=== PATIENT | female | born 1960 | race Caucasian/White ===

== ENCOUNTER 2024-07-01 13:59 | Inpatient (IN) ==
--- NOTE | 2024-07-01 14:12 | Emergency Department Note ---
Impression & Plan Stroke-like symptom, Right-sided carotid artery disease ED Provider Note NAME: VAMSI HAZEL AGE: 63 SEX: F : 1960 ARRIVES VIA: Walk-In INFORMANT: Patient, ED PROVIDER(S): Billy Singh DO CHIEF COMPLAINT: Strokelike symptoms HPI: The patient is a 63-year-old female who presented to the emergency department for an evaluation of strokelike symptoms. The patient states approximately 15 to 20 minutes ago she was walking upstairs and doing some cleaning. She had an acute onset of left arm numbness. She also noted that her arm was heavy and she could not lift it. She noticed tingling on both sides of her face. The patient came directly to the emergency department. At this point she states that her arm weakness is improving. She denies having any chest pain or difficulty breathing. She denies having any headache. The patient has no history of stroke but does have a history of hypertension. ROS: See above HPI for pertinent positives & negatives. A total of 10 systems reviewed and were otherwise negative. PAST MEDICAL HISTORY: See Below PAST SURGICAL HISTORY: See Below FAMILY HISTORY: See Below SOCIAL HISTORY: See Below HOME MEDICATIONS: See Below ALLERGIES: See Below VITALS: See Below PHYSICAL EXAMINATION: GENERAL: The patient is awake and alert. She is very anxious appearing. EYES: The conjunctivae are clear. The pupils are round and reactive. EARS, NOSE, MOUTH AND THROAT: The nose is without any evidence of any deformity. NECK: The neck is nontender and supple. RESPIRATORY: Normal respiratory effort is noted there is no evidence of wheezing rhonchi or rales CARDIOVASCULAR: Regular rate and rhythm noted there no murmurs rubs or gallops normal S1 normal S2. GASTROINTESTINAL: The abdomen is soft. Abdomen is nontender. MUSCULOSKELETAL/EXTREMITIES: There is no evidence of gross deformity full range of motion is noted in the hips and shoulders. SKIN: There is no obvious evidence of any rash. There are no petechiae, pallor or cyanosis noted. NEUROLOGIC: Patient is awake alert and oriented x3 strength is symmetric patellar reflexes are 2+ bilaterally. There is no drift in the upper extremities. Patient is able to hold each leg off of the bed for greater than 5 seconds. Clothespin Drier Operator strength was symmetric. MEDICAL DECISION MAKING: The patient is a 63-year-old female who presented to the emergency department for strokelike symptoms. The patient had an acute onset of left upper extremity tingling as well as weakness. This occurred prior to arrival. Upon arrival to the emergency department she was not initially made a stroke alert. She was brought back to a room and then made a stroke alert after my evaluation. The patient was reevaluated multiple times. Symptoms continued to improve while in the emergency department. She was evaluated by the telestroke neurologist. Because of her improving symptoms and because the patient was not agreeable to TNK at this time she was not given TNK. I discussed the patient's condition with her. I discussed her condition with the on-call [facility] group. The patient was treated with Plavix. Triage Nursing notes reviewed. Prior medical records reviewed Vital Signs: reviewed and remarkable for elevated blood pressure. Differential diagnosis: Infection, dehydration, metabolic abnormality, hypo/hyperglycemia, electrolyte disturbance, anemia, hypoxia, cardiac sources, intracerebral event, toxicologic, neurologic, as well as other pathologies. ER treatment provided: See below Diagnostics interpreted by me: ECG: EKG was obtained in the emergency department. My interpretation is normal sinus rhythm at 91 bpm. There was no ectopy. There is no acute ST segment abnormalities noted. This was compared to a tracing from December 05, 2022. No changes were noted. Cardiac Monitoring: An order was placed for continuous cardiac monitoring. The monitor shows a rate of 87 bpm with sinus rhythm. Laboratory studies: As stated above and show below. Imaging studies: See below. Radiographic imaging was reviewed by myself Consultation(s): I discussed this case with Dr Khalil who was financial administration officer for [facility] [place] Telestroke I discussed this case with Na who is on for the [facility]ist group. ED COURSE: Procedures: none Critical Care: I have personally spent greater than 45 minutes of critical care time in the direct management of this patient. This includes bedside care, interpretation of diagnostic studies, and testing, discussion with consultants, patient, and family members, and other required patient management activities. This 45 minutes is in excess of all separately billable procedures. Past Med/Surg History Problem List (Updated 07/01/24 @ 15:31 by Billy Singh DO) Right-sided carotid artery disease (Acute) Stroke-like symptom (Acute) Stroke-like symptoms Medical History HTN (hypertension) Surgical History No pertinent past surgical history Social History Smoking Status: Never smoker Hx Alcohol Use: No Hx Substance Use: No Preferred Language: Spanish Feels Safe at Home: Yes Allergies Allergies Allergy/AdvReac Type Severity Reaction Status Date / Time [id number] Allergy Unknown Uncoded 01/31/03 16:59 Home Meds Previous Rx's Medication Instructions Recorded amlodipine 5 mg tablet 5 mg PO DAILY #30 tabs 12/05/22 Results & Data (ED) Vital Signs Vital Signs - 24 hr 07/01/24 14:02 07/01/24 14:10 07/01/24 14:30 Temperature 36.3 C L 36.7 C Temperature Source Temporal Artery Scan Oral Pulse Rate 102 H Pulse Rate [Apical] 101 H Pulse Rate from SpO2 Sensor Pulse Rhythm [Apical] Regular Pulse Strength [Apical] Normal Respiratory Rate 16 20 Respiratory Effort / Characteristics Non-Labored Spontaneous Non-Labored Spontaneous Respiratory Depth Normal Normal Respiratory Pattern Regular Regular Blood Pressure 148/93 H 156/103 H Blood Pressure [Right Arm] 176/114 H Blood Pressure Mean 111 121 Blood Pressure Mean [Right Arm] 134 Blood Pressure Position [Right Arm] Semi-fowlers Pulse Oximetry 97 95 Oxygen Delivery Method Room Air Room Air Sepsis Recent Fever Within 48 Hours No Sepsis New/Unexplained Change in Mental Status N/A Sepsis Action Taken by Nursing No Action Required 07/01/24 14:30 07/01/24 14:35 07/01/24 14:42 Temperature Temperature Source Pulse Rate 95 H 94 H Pulse Rate [Apical] Pulse Rate from SpO2 Sensor 95 H Pulse Rhythm [Apical] Pulse Strength [Apical] Respiratory Rate 12 Respiratory Effort / Characteristics Respiratory Depth Respiratory Pattern Blood Pressure 156/103 H Blood Pressure [Right Arm] Blood Pressure Mean 121 Blood Pressure Mean [Right Arm] Blood Pressure Position [Right Arm] Pulse Oximetry 96 Oxygen Delivery Method Sepsis Recent Fever Within 48 Hours Sepsis New/Unexplained Change in Mental Status Sepsis Action Taken by Nursing 07/01/24 15:06 Temperature Temperature Source Pulse Rate Pulse Rate [Apical] 87 Pulse Rate from SpO2 Sensor Pulse Rhythm [Apical] Regular Pulse Strength [Apical] Normal Respiratory Rate 18 Respiratory Effort / Characteristics Non-Labored Spontaneous Respiratory Depth Normal Respiratory Pattern Regular Blood Pressure Blood Pressure [Right Arm] 160/104 H Blood Pressure Mean Blood Pressure Mean [Right Arm] 122 Blood Pressure Position [Right Arm] Pulse Oximetry 94 Oxygen Delivery Method Room Air Sepsis Recent Fever Within 48 Hours Sepsis New/Unexplained Change in Mental Status Sepsis Action Taken by Long Term Medications Current Medication List: was personally reviewed by me Laboratory Data Attestation: I reviewed the patient's lab results. 07/01/24 14:15 07/01/24 14:15 Lab Results 07/01/24 07/01/24 07/01/24 Range/Units 14:15 14:22 14:27 WBC 9.20 (4.8-10.8) K/ul RBC 4.99 (4.20-5.40) M/uL Hgb 14.6 (12.0-16.0) g/dl POC Hgb 15.3 (12.0-16.0) g/dl Hct 42.8 (37.0-47.0) % POC Hct 45 (37-47) % MCV 85.8 (80.0-100.0) fL MCH 29.3 (25.0-34.0) pg MCHC 34.1 (32.0-36.0) g/dL RDW Std Deviation 44.5 (36.4-46.3) fL RDW Coeff of Anne 14.2 (11.5-14.5) % Plt Count 298 (130-400) K/uL MPV 11.0 (9.4-12.4) fL Immature Gran % (Auto) 0.2 % Neut % (Auto) 55.4 % Lymph % (Auto) 31.2 % Mccone % (Auto) 9.6 % Eos % (Auto) 2.7 % Baso % (Auto) 0.9 % Neut # (Auto) 5.10 (1.40-6.50) K/uL Lymph # (Auto) 2.87 (1.20-3.40) K/uL Mccone # (Auto) 0.88 H (0.11-0.59) K/uL Eos # (Auto) 0.25 (0.00-0.50) K/uL Baso # (Auto) 0.08 (0.00-0.20) K/uL Immature Gran # (Auto) 0.02 (0.01-0.20) K/uL PT 10.2 (9.0-12.0) Seconds INR 0.9 (0.9-1.1) APTT 26 (21-31) Seconds PTT Ratio 1.0 POC Sodium 138 (135-144) mmol/L Sodium 136 (136-145) mmol/L POC Potassium 3.9 (3.3-5.0) mmol/L Potassium 3.9 (3.5-5.1) mmol/L POC Chloride 104 (101-112) mmol/L Chloride 103 (98-107) mmol/L Carbon Dioxide 23 (21-32) mmol/L POC Total CO2 21 L (24-31) mmol/L Anion Gap 10 (3-11) POC Anion Gap 19.0 (16-25) mmol/L POC BUN 17 (7-18) mg/dl BUN 16 (6-23) mg/dl Creatinine 0.72 (0.6-1.2) mg/dl POC Creatinine 0.7 (0.6-1.3) mg/dl Est Cr Clr Drug Dosing 74.7 ml/min Est GFR ( Amer) 102.6 ml/min Est GFR (Non-Af Amer) 88.5 ml/min BUN/Creatinine Ratio 22.2 H (10-20) Glucose 89 (70-99(Fasting)) mg/dl POC Glucose 87 (70-99) mg/dl POC Glucose (other) 93 (70-99) mg/dl Calcium 9.3 (8.6-10.3) mg/dl POC Ioniz Calcium Cristal 1.16 (1.12-1.32) mmol/l Magnesium 2.1 (1.7-2.4) mg/dl Total Bilirubin 0.5 (0.2-1.0) mg/dl AST 20 (13-39) U/L ALT 16 (7-52) U/L Alkaline Phosphatase 127 H (34-104) U/L Troponin I High Sens 4.7 (0-14) pg/ml Total Protein 8.0 (6.0-8.3) gm/dl Albumin 4.4 (3.4-5.0) gm/dl Globulin 3.6 (2.5-4.0) gm/dl Albumin/Globulin Ratio 1.2 (0.9-2) Administered Medications Discontinued Medications Clopidogrel Bisulfate (Clopidogrel Bisulfate 300 Mg Tab) 300 mg PO NOW STA Stop: 07/01/24 15:05 Last Admin: 07/01/24 15:11 Dose: 300 mg Documented By: WIL Ioversol (Optiray 320 125ml) 119 ml IV ONCE ONE Stop: 07/01/24 14:21 Last Admin: 07/01/24 14:21 Dose: 119 ml Documented By: VIRGILIO Imaging Data Attestation: I personally reviewed and interpreted this imaging study as follows: My Impression: 1 view chest x-ray was obtained in the emergency department. My interpretation is no free air or definite infiltrate, final report below. CT the brain was obtained in the emergency department. My interpretation is no intracranial hemorrhage or mass effect, final report below. Radiologist's Impression: Chest X-Ray 07/01/24 14:10 XR chest 1V portable HISTORY: 63 years-old Female neuro deficit, acute stroke suspected COMPARISON: 12/05/2022 TECHNIQUE: AP view of the chest FINDINGS: Cardiomediastinal and hilar silhouettes are within normal limits. No pneumothorax, pleural effusion or airspace consolidation. Bones appear grossly intact. IMPRESSION: No acute process. ACT 112: Negative or not required by law. The above report was generated using voice recognition software. It may contain grammatical, syntax or spelling errors. Electronically signed by: Uday Rawls M.D. 07/01/2024 2:[address] 07/01/24 14:10 CT OF THE HEAD WITHOUT CONTRAST CLINICAL HISTORY: neuro deficit, acute stroke suspected COMPARISON STUDY: Head CT December 05, 2022. TECHNIQUE: Helical axial images of the head were obtained without IV contrast. Automated exposure control was utilized for the study. A dose lowering technique was utilized adhering to the principles of ALARA. FINDINGS: No acute intracranial hemorrhage, midline shift or mass effect is present. The ventricular system is unremarkable. The basal cisterns are patent. No extra-axial collections are present. There are no findings to suggest acute dural sinus thrombosis or acute territorial infarct. No significant calvarial abnormalities are present. Visualized portions of the sinuses and mastoid air cells are clear. IMPRESSION: No acute intracranial findings. ACT 112: Negative or not required by law. Electronically signed by: Naveed Reynolds M.D. 07/01/2024 2:33 PM Head CTA 07/01/24 14:10 CT angio head w con CLINICAL HISTORY: 63 years-old Female with neuro deficit, acute stroke suspected. Acute stroke like symptoms COMPARISON STUDY: Head CT of same day TECHNIQUE: Following the IV administration of 119 cc of Optiray, CT angiogram of the brain was performed from the skull base to the vertex. Images are reviewed in the axial, sagittal, and coronal planes. 3-D MIPS images are created and assessed. IV contrast was administered without complication. All measurements were obtained according to NASCET criteria. A dose lowering technique was utilized adhering to the principles of ALARA. FINDINGS: CT ANGIOGRAM OF THE BRAIN: The imaged bilateral internal carotid arteries are patent. The bilateral anterior and middle cerebral arteries are also patent. The vertebrobasilar system and posterior cerebral arteries are widely patent. There is no aneurysm, high-grade stenosis, or proximal branch occlusion identified. Dural sinuses appear patent. IMPRESSION: Unremarkable CTA of the head. ACT 112: Negative or not required by law. The above report was generated using voice recognition software. It may contain grammatical, syntax or spelling errors. Electronically signed by: Uday Rawls M.D. 07/01/2024 2:41 PM Neck CTA 07/01/24 14:10 CT angio neck with con CLINICAL HISTORY: neuro deficit, acute stroke suspected TECHNIQUE: CT angiography of the neck was performed following intravenous administration of iodinated contrast. Coronal and sagittal MIPS were obtained from the axial data set and were submitted for review. Automated dose lowering techniques and/or adjustment according to patient size were utilized for this examination. All measurements were calculated based on NASCET criteria. CT DOSE: 1256.14 mGy.cm Comparison: None available at the time of this dictation. FINDINGS: Small thyroid nodules are seen which do not require follow-up by ACR criteria. CTA Neck: A 3 vessel aortic arch is shown. There is no significant atherosclerotic plaque in the aortic arch or the origins of the innominate, left common carotid, and left subclavian arteries. There is hemodynamically significant atherosclerosis of the right carotid bulb with approximately 90% stenosis. The left vertebral artery is dominant. IMPRESSION: Hemodynamically significant stenosis of the right internal carotid artery with approximately 90% narrowing. Assessment of stenosis of the internal carotid arteries is based on NASCET criteria. ACT 112: Negative or not required by law. Electronically signed by: Richard Regan M.D. 07/01/2024 2:32 PM Discharge Plan Visit Data Chief Complaint: TIA Symptoms Stated Complaint: NUMBNESS IN ARMS, HEAD PAIN ED Provider: Billy Singh Discharge Problem: Stroke-like symptom, Right-sided carotid artery disease Patient Disposition: Being Evaluated by Hospitalist Forms Stand Alone Forms: [facility] Prescriptions Prescriptions: No Action amlodipine 5 mg tablet 5 mg PO DAILY Qty: 30 0RF Rx Instructions: filled 04/19 for day 90 supply Referrals Referrals: Pierre Harp DO [Hospitalist] - Discharge Problem: Right-sided carotid artery disease Qualifiers: Carotid artery disease type: unspecified Qualified Code(s): I77.9 - Disorder of arteries and arterioles, unspecified
[2024-07-01] MEDS: OPTIRAY 320 125ml IV ONE (14:21)
--- NOTE | 2024-07-01 14:34 | CT Scan Report ---
CT OF THE HEAD WITHOUT CONTRAST CLINICAL HISTORY: neuro deficit, acute stroke suspected COMPARISON STUDY: Head CT December 05, 2022. TECHNIQUE: Helical axial images of the head were obtained without IV contrast. Automated exposure con trol was utilized for the study. A dose lowering technique was utilized adhering to the principles o f ALARA. FINDINGS: No acute intracranial hemorrhage, midline shift or mass effect is present. The ventricular system is unremarkable. The basal cisterns are patent. No extra-axial collections are present. There are no findings to suggest acute dural sinus thrombosis or acute territorial infarct. No significant calvarial abnormalities are present. Visualized portions of the sinuses and mastoid air cells are raymond ar. IMPRESSION: No acute intracranial findings. ACT 112: Negative or not required by law. Electronically signed by: Naveed Reynolds M.D. 07/01/2024 2:33 PM
--- NOTE | 2024-07-01 14:34 | CT Scan Report ---
CT angio neck with con CLINICAL HISTORY: neuro deficit, acute stroke suspected TECHNIQUE: CT angiography of the neck was performed following intravenous administration of iodinate d contrast. Coronal and sagittal MIPS were obtained from the axial data set and were submitted for re view. Automated dose lowering techniques and/or adjustment according to patient size were utilized f or this examination. All measurements were calculated based on NASCET criteria. CT DOSE: 1256.14 mGy.cm Comparison: None available at the time of this dictation. FINDINGS: Small thyroid nodules are seen which do not require follow-up by ACR criteria. CTA Neck: A 3 vessel aortic arch is shown. There is no significant atherosclerotic plaque in the aor tic arch or the origins of the innominate, left common carotid, and left subclavian arteries. There is hemodynamically significant atherosclerosis of the right carotid bulb with approximately 90% steno sis. The left vertebral artery is dominant. IMPRESSION: Hemodynamically significant stenosis of the right internal carotid artery with approximately 90% narr owing. Assessment of stenosis of the internal carotid arteries is based on NASCET criteria. ACT 112: Negative or not required by law. Electronically signed by: Richard Regan M.D. 07/01/2024 2:32 PM
[2024-07-01 14:35] LABS: iSTAT Creatinine 0.7 mg/dl (0.6-1.3); iSTAT Hemoglobin 15.3 g/dl (12.0-16.0); iSTAT Ionized Calcium 1.16 mmol/l (1.12-1.32); iSTAT Potassium 3.9 mmol/L (3.3-5.0)
--- NOTE | 2024-07-01 14:43 | CT Scan Report ---
CT angio head w con CLINICAL HISTORY: 63 years-old Female with neuro deficit, acute stroke suspected. Acute stroke lik e symptoms COMPARISON STUDY: Head CT of same day TECHNIQUE: Following the IV administration of 119 cc of Optiray, CT angiogram of the brain was perfor med from the skull base to the vertex. Images are reviewed in the axial, sagittal, and coronal planes . 3-D MIPS images are created and assessed. IV contrast was administered without complication. All me asurements were obtained according to NASCET criteria. A dose lowering technique was utilized adherin g to the principles of ALARA. FINDINGS: CT ANGIOGRAM OF THE BRAIN: The imaged bilateral internal carotid arteries are patent. The bilateral anterior and middle cerebral arteries are also patent. The vertebrobasilar system and posterior cerebral arteries are widely maldonado nt. There is no aneurysm, high-grade stenosis, or proximal branch occlusion identified. Dural sinuses appear patent. IMPRESSION: Unremarkable CTA of the head. ACT 112: Negative or not required by law. The above report was generated using voice recognition software. It may contain grammatical, syntax o r spelling errors. Electronically signed by: Uday Rawls M.D. 07/01/2024 2:41 PM
--- NOTE | 2024-07-01 14:50 | XRay Report ---
XR chest 1V portable HISTORY: 63 years-old Female neuro deficit, acute stroke suspected COMPARISON: 12/05/2022 TECHNIQUE: AP view of the chest FINDINGS: Cardiomediastinal and hilar silhouettes are within normal limits. No pneumothorax, pleural effusion o r airspace consolidation. Bones appear grossly intact. IMPRESSION: No acute process. ACT 112: Negative or not required by law. The above report was generated using voice recognition software. It may contain grammatical, syntax o r spelling errors. Electronically signed by: Uday Rawls M.D. 07/01/2024 2:49 PM
[2024-07-01 14:51] LABS: Basophils # (auto) 0.08 K/uL (0.00-0.20); Basophils % (auto) 0.9 %; Eosinophils # (auto) 0.25 K/uL (0.00-0.50); Eosinophils % (auto) 2.7 %; Hematocrit (blood only) 42.8 % (37.0-47.0); Hemoglobin 14.6 g/dl (12.0-16.0); Immature Granulocytes # (auto) 0.02 K/uL (0.01-0.20); Immature Granulocytes % (auto) 0.2 %; Lymphocytes # (auto) 2.87 K/uL (1.20-3.40); Lymphocytes % (auto) 31.2 %; Mean Corpuscular Hemoglobin 29.3 pg (25.0-34.0); Mean Corpuscular Hgb Conc 34.1 g/dL (32.0-36.0); Mean Corpuscular Volume 85.8 fL (80.0-100.0); Monocytes # (auto) 0.88 K/uL (0.11-0.59); Monocytes % (auto) 9.6 %; Neutrophils % (auto) 55.4 %; Platelet Count 298 K/uL (130-400); RDW Coefficient of Variation 14.2 % (11.5-14.5); RDW Standard Deviation 44.5 fL (36.4-46.3); Red Blood Count 4.99 M/uL (4.20-5.40)
[2024-07-01 15:03] LABS: Albumin Globulin Ratio 1.2 (0.9-2); Albumin Level 4.4 gm/dl (3.4-5.0); BUN Creatinine Ratio 22.2 (10-20); Bilirubin,Total 0.5 mg/dl (0.2-1.0); Calcium 9.3 mg/dl (8.6-10.3); Creatinine Clr Calc Pharmacy 74.7 ml/min; Est GFR (African American) 102.6 ml/min; Est GFR (Non-African American) 88.5 ml/min; Globulin 3.6 gm/dl (2.5-4.0); Magnesium 2.1 mg/dl (1.7-2.4); Potassium 3.9 mmol/L (3.5-5.1)
[2024-07-01 15:09] LABS: Troponin I High Sensitivity 4.7 pg/ml (0-14)
[2024-07-01] MEDS: CLOPIDOGREL BISULFATE 300 MG TAB PO STA (15:11)
[2024-07-01 15:18] LABS: INR 0.9 (0.9-1.1); Partial Thromboplastin Time 26 Seconds (21-31); Prothrombin Time 10.2 Seconds (9.0-12.0)
--- NOTE | 2024-07-01 15:21 | History & Physical Report ---
Date of Service July 01, 2024 Assessment & Plan (1) Stroke-like symptoms: (2) Right-sided carotid artery disease: Plan Margarita Patricia is a overall healthy 63y/o F with PMHx significant only for HTN who presented to the ED with stroke-like symptoms. Stroke-Like Symptoms: Tachycardic, SBP elevated in the 150s-160s. Lab work rather unremarkable. UA pending. CXR negative, head CT negative. Head CTA negative. Neck CTA revealed hemodynamically significant stenosis of the right internal carotid artery with approximately 90% narrowing --> vascular surgery consult pending regarding this finding. Likely this finding is what contributed to her symptoms. Telestroke was consulted in the ED - recommended against using TNK in this situation. S/p 300mg po Plavix in the ED. Brain MRI, echo pending. Neurology consult pending. Speech therapy, PT/OT evals pending. Starting her on ASA 81mg daily and atorvastatin 40mg daily pending further neurology and vascular surgery recommendations. HTN: BP has remained stable, can continue home amlodipine. DVT Prophylaxis: SQ Lovenox Code Status: FULL CODE PCP: Alec Baird MD Disposition: Admit to Med/Surg + Telemetry Patient seen in collaboration with Dr. Harp. Please see addendum. I spent a total of 50 minutes coordinating, documenting, and providing care for this patient excluding time spent in the performance of separately billed services. This included personally reviewing all current laboratories and imaging studies, medical reconciliation, outpatient chart review and discussion with specialists. This chart was completed in part utilizing Speech Voice Recognition Software. Grammatical errors, random word insertions, pronoun errors, and incomplete se ntences are an occasional consequence of this system due to software limitations, ambient noise, and hardware issues. Any formal questions or concerns about the content, text, or information contained within the body of this dictation should be directly addressed to the provider for clarification. History of Present Illness Chief Complaint: Stroke-Like Symptoms Primary Care Provider: Alec Baird MD Margarita Patricia is a overall healthy 63y/o F with PMHx significant only for HTN who presented to the ED with stroke-like symptoms. History obtained from patient and associated chart review. Patient's , Anoop, is present at bedside. Patient started with numbness and tingling in her left arm around 1:45PM while getting ready to clean her house. Patient's then drove her to the ED for further evaluation. In the ED, she developed some bilateral facial numbness from her jawline to her upper cheekbone region. CXR was negative. Head CT was negative. Head CTA was negative. Neck CTA did however show hemodynamicall y significant stenosis of the right internal carotid artery with approximately 90% narrowing. She was loaded with 300mg po Plavix in the ED. Telestroke saw and evaluated the patient, recommended against using TNK. Patient's symptoms had completely resolved by the time I saw her in the ED. She denies ever experiencing any visual changes or lightheadedness/dizziness when the previously described symptoms occurred. Allergies Allergy/AdvReac Type Severity Reaction Status Date / Time [id number] Allergy Unknown Uncoded 01/31/03 16:59 Home Medications Medication Instructions Recorded Confirmed Type amlodipine 5 mg tablet 5 mg PO DAILY #30 tabs 12/05/22 07/01/24 Rx Past Med/Surg History Problem List Right-sided carotid artery disease (Acute) Stroke-like symptom (Acute) Stroke-like symptoms Medical History HTN (hypertension) Surgical History No pertinent past surgical history Social History Smoking Status: Never smoker Hx Alcohol Use: No Hx Substance Use: No Preferred Language: Citizen Of [place] Feels Safe at Home: Yes Review of Systems Review of Systems: At least ten systems reviewed and negative, except as noted in the HPI. Physical Exam Physical Exam: General: WD/WN, vitals as above, NAD, sitting up in bed, very pleasant, conversing appropriately. A+Ox3, euthymic affect. HEENT: Normocephalic, atraumatic. PERRL, conjunctivae normal, anicteric sclerae. External ear and nose normal, oropharynx normal. Respiratory: Normal respiratory effort, lungs clear to auscultation, no wheeze, rales, rhonchi. No accessory muscle use. Cardiovascular: Mildly tachycardic rate, regular rhythm, no murmur, normal peripheral pulses, no BLE edema. Vessels: No JVD. Abdomen/GI: Normal bowel sounds, soft, nontender, no hepatosplenomegaly. Extremities/Musculoskeletal: No cyanosis or clubbing, extremities motor strength 5/5, moves all extremities without issue. Neurologic: EOMI, NO focal deficits, CN's II-XI not formally tested but appear grossly intact bilaterally. Skin: No rashes, normal color, warm/dry. Results & Data Results & Data Vital Signs (Past 12 Hours) Vital Signs Temp Pulse Pulse Resp BP BP Pulse Ox 07/01/24 15:06 87 18 160/104 H 94 07/01/24 14:42 94 H 07/01/24 14:35 95 H 12 96 07/01/24 14:30 156/103 H 07/01/24 14:30 156/103 H 07/01/24 14:10 36.7 C 101 H 20 176/114 H 95 07/01/24 14:02 36.3 C L 102 H 16 148/93 H 97 O2 Del Method 07/01/24 15:06 Room Air 07/01/24 14:42 07/01/24 14:35 07/01/24 14:30 07/01/24 14:30 07/01/24 14:10 Room Air 07/01/24 14:02 Room Air Laboratory Results Short CBC 07/01/24 Range/Units 14:15 WBC 9.20 (4.8-10.8) K/ul Hgb 14.6 (12.0-16.0) g/dl Hct 42.8 (37.0-47.0) % Plt Count 298 (130-400) K/uL BMP 07/01/24 14:15 Sodium 136 Potassium 3.9 Chloride 103 Carbon Dioxide 23 BUN 16 Creatinine 0.72 Glucose 89 Calcium 9.3 Liver Function 07/01/24 Range/Units 14:15 Total Bilirubin 0.5 (0.2-1.0) mg/dl AST 20 (13-39) U/L ALT 16 (7-52) U/L Alkaline Phosphatase 127 H (34-104) U/L Albumin 4.4 (3.4-5.0) gm/dl Diagnostic Findings Chest X-Ray 07/01/24 14:10 XR chest 1V portable HISTORY: 63 years-old Female neuro deficit, acute stroke suspected COMPARISON: 12/05/2022 TECHNIQUE: AP view of the chest FINDINGS: Cardiomediastinal and hilar silhouettes are within normal limits. No pneumothorax, pleural effusion or airspace consolidation. Bones appear grossly intact. IMPRESSION: No acute process. ACT 112: Negative or not required by law. The above report was generated using voice recognition software. It may contain grammatical, syntax or spelling errors. Electronically signed by: Uday Rawls M.D. 07/01/2024 2:[address] 07/01/24 14:10 CT OF THE HEAD WITHOUT CONTRAST CLINICAL HISTORY: neuro deficit, acute stroke suspected COMPARISON STUDY: Head CT December 05, 2022. TECHNIQUE: Helical axial images of the head were obtained without IV contrast. Automated exposure control was utilized for the study. A dose lowering t echnique was utilized adhering to the principles of ALARA. FINDINGS: No acute intracranial hemorrhage, midline shift or mass effect is present. The ventricular system is unremarkable. The basal cisterns are patent. No extra-axial collections are present. There are no findings to suggest acute dural sinus thrombosis or acute territorial infarct. No significant calvarial abnormalities are present. Visualized portions of the sinuses and mastoid air cells are clear. IMPRESSION: No acute intracranial findings. ACT 112: Negative or not required by law. Electronically signed by: Naveed Reynolds M.D. 07/01/2024 2:33 PM Head CTA 07/01/24 14:10 CT angio head w con CLINICAL HISTORY: 63 years-old Female with neuro deficit, acute stroke suspected. Acute stroke like symptoms COMPARISON STUDY: Head CT of same day TECHNIQUE: Following the IV administration of 119 cc of Optiray, CT angiogram of the brain was performed from the skull base to the vertex. Images are reviewed in the axial, sagittal, and coronal planes. 3-D MIPS images are created and assessed. IV contrast was administered without complication. All measurements were obtained according to NASCET criteria. A dose lowering technique was utilized adhering to the principles of ALARA. FINDINGS: CT ANGIOGRAM OF THE BRAIN: The imaged bilateral internal carotid arteries are patent. The bilateral anterior and middle cerebral arteries are also patent. The vertebrobasilar system and posterior cerebral arteries are widely patent. There is no aneurysm, high-grade stenosis, or proximal branch occlusion identified. Dural sinuses appear patent. IMPRESSION: Unremarkable CTA of the head. ACT 112: Negative or not required by law. The above report was generated using voice recognition software. It may contain grammatical, syntax or spelling errors. Electronically signed by: Uday Rawls M.D. 07/01/2024 2:41 PM Neck CTA 07/01/24 14:10 CT angio neck with con CLINICAL HISTORY: neuro deficit, acute stroke suspected TECHNIQUE: CT angiography of the neck was performed following intravenous administration of iodinated contrast. Coronal and sagittal MIPS were obtained from the axial data set and were submitted for review. Automated dose lowering techniques and/or adjustment according to patient size were utilized for this examination. All measurements were calculated based on NASCET criteria. CT DOSE: 1256.14 mGy.cm Comparison: None available at the time of this dictation. FINDINGS: Small thyroid nodules are seen which do not require follow-up by ACR criteria. CTA Neck: A 3 vessel aortic arch is shown. There is no significant atherosclerotic plaque in the aortic arch or the origins of the innominate, left common carotid, and left subclavian arteries. There is hemodynamically significant atherosclerosis of the right carotid bulb with approximately 90% stenosis. The left vertebral artery is dominant. IMPRESSION: Hemodynamically significant stenosis of the right internal carotid artery with approximately 90% narrowing. Assessment of stenosis of the internal carotid arteries is based on NASCET criteria. ACT 112: Negative or not required by law. Electronically signed by: Richard Regan M.D. 07/01/2024 2:32 PM Medications Administered Discontinued Medications Clopidogrel Bisulfate (Clopidogrel Bisulfate 300 Mg Tab) 300 mg PO NOW STA Stop: 07/01/24 15:05 Last Admin: 07/01/24 15:11 Dose: 300 mg Documented By: WIL Ioversol (Optiray 320 125ml) 119 ml IV ONCE ONE Stop: 07/01/24 14:21 Last Admin: 07/01/24 14:21 Dose: 119 ml Documented By: VIRGILIO Code Status & VTE Plan Code Status FULL CODE Supervising Physician Co-Signing Physician Notes Pt seen and examined in the ED with her present. She is a 63y/o F with PMHx significant for HTN who presented to the ED with numbness in the RUE and then spreading to her face and jaws. Her CTA showed a 90% stenosis of the KLAUDIA. Her symptoms have resolved now. Her exam is negative for focal deficits at present. No hx of Atrial fib. A total of 30 minutes was spent in care coordination. I agree with the assessment and plan per the CARLIE. (2) Right-sided carotid artery disease Carotid artery disease type: unspecified Qualified Code(s): I77.9 - Disorder of arteries and arterioles, unspecified
[2024-07-01 16:32] LABS: Appearance Urine Clear (Clear); Bacteria Urine Automated None Seen (None Seen); Bilirubin Urine Negative (Negative); Blood Urine Negative (Negative); Cast Urine Automated 0-2 /lpf (0-2); Color Urine Yellow; Glucose Urine UA Negative (Negative); Ketones Urine Negative (Negative); Leukocyte Esterase Urine 2+ (Negative); Nitrite Urine Negative (Negative); Protein Urine Negative (Negative); RBC Urine Automated 0-2 /hpf (0-2); Specific Gravity Urine 1.026 (1.000-1.030); Urobilinogen Urine Negative (Negative); pH Urine 7.5 (4.5-7.5)
[2024-07-01] MEDS ORDERED: PHARMACIST DISCHARGE MED REC CONSULT PRN (17:51)
[2024-07-01] MEDS ORDERED: ACETAMINOPHEN 325 MG TAB PO PRN (17:51)
[2024-07-01] MEDS ORDERED: POLYETHYLENE (MIRALAX) 17 GM PACK PO PRN (17:51)
[2024-07-01] MEDS ORDERED: ONDANSETRON INJ 2 MG/ML 2 ML VIAL IV PRN (17:51)
[2024-07-01] MEDS: Patient's ALLERGY Info needs ENTERED STA (19:04)
[2024-07-01] MEDS: ENOXAPARIN INJ 40 MG/0.4 ML SYR SQ SCH (20:12)
[2024-07-01] MEDS: LORazepam 0.5 MG TAB PO STA (20:30)
[2024-07-01] MEDS: GADOBUTROL 65ML VIAL IV ONE (21:19)
--- NOTE | 2024-07-01 21:53 | Communication Note ---
Date of Service: July 01, 2024 CODE LUKASZ called while patient at MRI. Patient upper body found to be shaking by signal technician after MRI procedure. Possible seizures as per signal technician. Episode lasting less than a minute. No tongue biting or incontinence symptoms. CPR initiated due to uncertainty regarding presence of pulse. Patient promptly woke up. Patient not confused upon waking up. Denies headache, chest pain, SOB. Recalls feeling weird sensation after MRI procedure. PCU transfer from current med/tele level of care BSG now EEG to rule out seizures Ativan as needed active seizures Await Neurology input
[2024-07-01] MEDS ORDERED: LORazepam 2 MG/1 ML VIAL IV PRN (22:15)
[2024-07-01] MEDS: NSS + 20MEQ KCL 20 MEQ/1,000 ML BAG IV ONE (23:50)
--- NOTE | 2024-07-02 00:12 | Magnetic Resonance Report ---
Exam(s): MRI HEAD W/WO Contrast EXAM: MR Head Without and With Intravenous Contrast CLINICAL HISTORY: Reason for exam: Stroke r/o. TECHNIQUE: Magnetic resonance images of the head/brain without and with intravenous contrast in multiple planes. CONTRAST: Contrast must be dictated COMPARISON: Prior head CT from July 01, 2024. FINDINGS: Brain: Mild nonspecific white matter changes. The flow voids at the base of the brain are intact. No mass. No hemorrhage. No acute infarct. Normal enhancement of the brain parenchyma. Ventricles: Unremarkable. No ventriculomegaly. Bones/joints: Unremarkable. No acute fracture. Sinuses: Unremarkable as visualized. No acute sinusitis. Mastoid air cells: Unremarkable as visualized. No mastoid effusion. Orbits: Unremarkable as visualized. IMPRESSION: No evidence of acute intracranial pathology. Mild nonspecific white matter changes. Electronically signed by: Darshana Griffith MD 07/02/24 00:10 AM
[2024-07-02 04:14] LABS: Basophils # (auto) 0.04 K/uL (0.00-0.20); Basophils % (auto) 0.4 %; Eosinophils # (auto) 0.02 K/uL (0.00-0.50); Eosinophils % (auto) 0.2 %; Hematocrit (blood only) 39.9 % (37.0-47.0); Hemoglobin 13.2 g/dl (12.0-16.0); Immature Granulocytes # (auto) 0.04 K/uL (0.01-0.20); Immature Granulocytes % (auto) 0.4 %; Lymphocytes # (auto) 1.69 K/uL (1.20-3.40); Lymphocytes % (auto) 15.3 %; Mean Corpuscular Hemoglobin 28.6 pg (25.0-34.0); Mean Corpuscular Hgb Conc 33.1 g/dL (32.0-36.0); Mean Corpuscular Volume 86.4 fL (80.0-100.0); Mean Platelet Volume 10.4 fL (9.4-12.4); Monocytes # (auto) 0.38 K/uL (0.11-0.59); Monocytes % (auto) 3.4 %; Neutrophils # (auto) 8.87 K/uL (1.40-6.50); Neutrophils % (auto) 80.3 %; Platelet Count 241 K/uL (130-400); RDW Coefficient of Variation 14.2 % (11.5-14.5); RDW Standard Deviation 44.5 fL (36.4-46.3); Red Blood Count 4.62 M/uL (4.20-5.40); White Blood Count 11.04 K/ul (4.8-10.8)
[2024-07-02 04:24] LABS: Calcium 8.4 mg/dl (8.6-10.3); Chol HDL Ratio 5.4 (0-5); Creatinine Clr Calc Pharmacy 71.4 ml/min; Est GFR (African American) 97.6 ml/min; Est GFR (Non-African American) 84.2 ml/min; Magnesium 2.2 mg/dl (1.7-2.4); Phosphorus 3.5 mg/dl (2.5-4.9); Potassium 4.2 mmol/L (3.5-5.1)
--- OUTSIDE RECORDS SUMMARY | 2024-07-02 05:10 | External Medical Summary | Summary of Care ---
Author Name Unknown Organization [facility] Address [address] [place] [address] Phone [phone] Care Team Providers Care Supervisor Porcelain Department Name Role Phone Alec Baird MD Primary Care Provider [phone] Reason for Visit * Reason Onset Date Comments Abnormal Lab Results 01/07/2024 Encounter Details Date Type Department Care Team (Late st Contact Info) Description 01/07/2024 Telephone Family Practice [facility] [address] [facility] [place] [address] Alec Baird MD [address] [place] [facility] [address] Abnormal Lab Results Allergies No known active allergiesdocumented as of this encounter (statuses as of 01/07/2024) Medications Medication Sig Dispensed Refills Start Date End Date Status amLODIPine Besylate 5 MG Oral Tablet (Norvasc)Indications: HTN, goal below 130/80 Take 1 Tablet by mouth in the morning. In the morning.. 90 Tablet 3 01/04/2024 Active documented as of this encounter (statuses as of 01/07/2024) Active Problems Problem Noted Date Diagnosed Date Overweight (BMI 25.0-29.9) 12/08/2022 HTN, goal below 130/80 12/08/2022 documented as of this encounter (statuses as of 01/07/2024) Resolved Problems Problem Noted Date Diagnosed Date Resolved Date Family history of ischemic heart disease 11/04/2009 12/07/2022 ADVANCE DIRECTIVE INFORMATION 06/26/2007 12/07/2022 Overview: No, Advance Directive brochure given to patient. documented as of this encounter (statuses as of 01/07/2024) Immunizations Name Administration Dates Next Due Seasonal Influenza, Split, IIV3, With Preserve, Inj 09/19/2009 documented as of this encounter Social History Tobacco Use Types Packs/Day Years Used Date Smoking Tobacco: Never Smokeless Tobacco: Never Alcohol Use Standard Drinks/Week Comments No 0 (1 standard drink = 0.6 oz pur e alcohol) PHQ-2 Answer Date Recorded PHQ Adult Total Score 0 01/04/2024 Hunger Vital Sign Answer Date Recorded Within the past 12 months, y ou worried that your food would run out before you got the money to buy more. Never true 01/04/20 24 Within the past 12 months, t he food you bought just didn't last and you didn't have money to get more. Never true 01/04/2024 Sex and Gender Information Value Date Recorded Sex Assigned at Female 01/04/2024 2:36 PM EDT Gender Identity Female 01/04/2024 2:36 PM EDT Sexual Orientation Straight 01/04/2024 2: 36 PM EDT Job Start Date Occupation Industry Not on file Not on file Not on file documented as of this encounter Miscellaneous Notes * Telephone Encounter - Johanny Paiz RPh - 01/07/2024 3:03 PM EDT Unable to reach patient at this time. Left message on the answering machine requesting callback regarding lipid panel. Please review lipid panel with her. Her LDL is 240. Please see if she is willingto start on a statin. Advised patient to please call [phone]. Please transfer her back to myself. If I'm not available, transfer to next available [facility]. Thank you, Johanny Paiz, PharmD Clinical Pharmacist [facility] ([facility]) (Formerly [facility]pharm[facility]) [phone] 01/07/2024, 3:03 PM * Telephone Encounter - Johanny Paiz RPh - 01/07/2024 3:00 PM EDT Results for orders placed or performed in visit on 01/04/24 LIPID PANEL WITH DIRECT LDL IF TG IS HIGH Result Value Ref Range Triglycerides 140 <=174 mg/dL Cholesterol 327 (H) <200 mg/dL HDL Cholesterol 59 >49 mg/dL Non-HDL Cholesterol 268 (H) <=159 mg/dL LDL Cholesterol 240 (H) <=129 mg/dL Based on patient's LDL, recommend atorvastatin 40 mg once daily. Repeat lipid panel in 3 months. Thank you, Johanny Paiz, PharmD Clinical Pharmacist [facility] ([facility]) (Formerly Telepharm[facility]) [phone] 01/07/2024, 3:02 PM documented in this encounter Plan of Treatment Upcoming Encounters Date Type Department Care Team (Late st Contact Info) Description 01/09/2024 4:00 PM EDT Imaging Radiology [facility] [address] [place] [address] 01/05/2025 10:20 AM EDT Office Visit Family Practice [facility] [address] [place] [address] Alec Baird MD [address] [place] [address] Scheduled Procedures Name Priority Associated Diagnoses Date/Ti me COLONOSCOPY FLEXIBLE PROXIMA L DIAGNOSTIC Recall History of colonic polyps Health Maintenance Due Date Last Done Comments HIV Screening 1974 Hepatitis C Screening 1977 DTaP,Tdap,and Td Vaccines (1 - Tdap) 1978 HPV/Co-Test 1989 Zoster Vaccines (1 of 2) 2009 Cervical Cancer Screening 01/27/2013 Pap Smear 01/27/2013 01/27/2010 (Done elsewhere) COVID-19 Vaccine (1 - season) 2023 Mammogram 01/02/2024 01/01/2023, 12/13/2022 Influenza Vaccine (FLU shot) (Season Ended) 2024 09/19/2009, 09/19/2009 Depression Screening 01/03/2025 01/04/2024 GFR 01/03/2025 01/04/2024, 08/21/2003 Albumin/Creatinine Ratio 01/03/2027 01/04/2024 Diabetes Screening 01/03/2027 01/04/2024, 0 01/04/2024, 08/21/2003 COLONOSCOPY-EVERY 5 YRS AGES 18-100 04/26/2028 04/26/2023, 04/26/2023 Lipid Panel 01/03/2029 01/04/2024, 0312/2009, 12/02/2009, Additional history exists Colonoscopy Discontinued 04/26/2023, 04/26/2023 Colorectal Cancer Screening Discontinued Cologuard Discontinued Fecal Occult Blood Test Discontinued GARDASIL-HPV IMMUNIZATION SERIES Aged Out No longer eligible based on patient's age to complete this topic Hepatitis B Aged Out No longer eligi ble based on patient's age to complete this topic MENINGOCOCCAL (MENACTRA/MENVEO) Aged Out No longer eligible based on patient's age to complete this topic Pneumococcal Vaccine: Pediatrics (0 to 5 Years) and At-Risk Patients (6 to 64 Years) Aged Out No longer eligible based on patient's age to complete this topic Sigmoidoscopy Discontinued documented as of this encounter Medical Devices Not on filedocumented as of this encounter Care Teams Supervisor Porcelain Department Relationship Specialty Start Date End Date Alec Baird MD [address] [place] [address] PCP - General Family Medicine 12/08/22 documented as of this encounter
--- OUTSIDE RECORDS SUMMARY | 2024-07-02 05:10 | External Medical Summary | Summary of Care ---
Author Name Unknown Organization [facility] Address [address] [place] [address] Phone [phone] Care Team Providers Care Fretted String Instrument Repairer Name Role Phone Alec Baird MD Primary Care Provider [phone] Encounter Details Date Type Department Care Team (Late st Contact Info) Description 01/09/2024 Orders Only PATIENT PORTAL DO NOT DELETE THIS DEPT USED BY [place] [id number] Allergies No known active allergiesdocumented as of this encounter (statuses as of 01/09/2024) Medications Medication Sig Dispensed Refills Start Date End Date Status amLODIPine Besylate 5 MG Oral Tablet (Norvasc)Indications: HTN, goal below 130/80 Take 1 Tablet by mouth in the morning. In the morning.. 90 Tablet 3 01/04/2024 Active documented as of this encounter (statuses as of 01/09/2024) Active Problems Problem Noted Date Diagnosed Date Overweight (BMI 25.0-29.9) 12/08/2022 HTN, goal below 130/80 12/08/2022 documented as of this encounter (statuses as of 01/09/2024) Resolved Problems Problem Noted Date Diagnosed Date Resolved Date Family history of ischemic heart disease 11/04/2009 12/07/2022 ADVANCE DIRECTIVE INFORMATION 06/26/2007 12/07/2022 Overview: No, Advance Directive brochure given to patient. documented as of this encounter (statuses as of 01/09/2024) Immunizations Name Administration Dates Next Due Seasonal [...] on file documented as of this encounter Plan of Treatment Upcoming Encounters Date Type Department Care Team (Late st Contact Info) Description 01/09/2024 4:00 PM EDT Imaging Radiology [address] [facility] [place] [address] 01/05/2025 10:20 AM EDT Office Visit Family Practice [facility] [address] [facility] [place] [address] Alec Baird MD [address] [facility] [place] [address] Scheduled Procedures Name Priority Associated Diagnoses Date/Ti me COLONOSCOPY FLEXIBLE PROXIMA L DIAGNOSTIC Recall History of colonic polyps Health Maintenance Due Date Last Done Comments HIV Screening 1974 Hepatitis C Screening 1977 DTaP,Tdap,and Td Vaccines (1 - Tdap) 1978 HPV/Co-Test 1989 Zoster Vaccines (1 of 2) 2009 Cervical Cancer Screening 01/27/2013 Pap Smear 01/27/2013 01/27/2010 (Done elsewhere) COVID-19 Vaccine ( season) 2023 Mammogram 01/02/2024 01/01/2023, 12/13/2022 Influenza [...] filedocumented as of this encounter Care Teams Fretted String Instrument Repairer Relationship Specialty Start Date End Date Alec Baird MD [address] [facility] [place] [address] PCP - General Family Medicine 12/08/22 documented as of this encounter
--- OUTSIDE RECORDS SUMMARY | 2024-07-02 05:10 | External Medical Summary | Summary of Care ---
Author Name Unknown Organization [facility] Address [address] [place] [address] Phone [phone] Care Team Providers Care Metal Furniture Polisher Name Role Phone Alec Baird MD Primary Care Provider +1 [phone] Reason for Visit * Reason Onset Date Comments Health Maintenance 01/04/2024 Encounter Details Date Type Department Care Team (Late st Contact Info) Description 01/04/2024 Telephone Family Practice [facility] [address] [employer] [facility] [address] Alec Baird MD [address] [employer] [facility] [place] [address] Health Maintenance Allergies No known active allergiesdocumented as of this encounter (statuses as of 01/04/2024) Medications Medication Sig Dispensed Refills Start Date End Date Status amLODIPine Besylate 5 MG Oral Tablet (Norvasc) TAKE 1 TABLET BY MOUTH EVERY MORNING 30 Tablet 0 12/29/2023 Active documented as of this encounter (statuses as of 01/04/2024) Active Problems Problem Noted Date Diagnosed Date Overweight (BMI 25.0-29.9) 12/08/2022 HTN, goal below 130/80 12/08/2022 documented as of this encounter (statuses as of 01/04/2024) Resolved Problems Problem Noted Date Diagnosed Date Resolved Date Family history of ischemic heart disease 11/04/2009 12/07/2022 ADVANCE DIRECTIVE INFORMATION 06/26/2007 12/07/2022 Overview: No, Advance Directive brochure given to patient. documented as of this encounter (statuses as of 01/04/2024) Immunizations Name Administration Dates Next Due Seasonal Influenza, Split, IIV3, With Preserve, Inj 09/19/2009 documented as of this encounter Social History Tobacco Use Types Packs/Day Years Used Date Smoking Tobacco: Never Smokeless Tobacco: Never Alcohol Use Standard Drinks/Week Comments No 0 (1 standard drink = 0.6 oz pur e alcohol) Sex and Gender Information Value Date Recorded Sex Assigned at Female 01/04/2024 2:36 PM EDT Gender Identity Female 01/04/2024 2:36 PM EDT Sexual Orientation Straight 01/04/2024 2: 36 PM EDT Job Start Date Occupation Industry Not on file Not on file Not on file documented as of this encounter Miscellaneous Notes * Telephone Encounter - Trudy Hamilton LPN - 01/04/2024 2:35 PM EDT Care Gaps Comprehensive Care Outreach Last Office/Telemedicine Visit: 12/08/2022 (in office), Visit date not found (telemedicine) Next Office Visit: Visit date not found Hemoglobin AIC Results: No results found for: "HEMOGLOBIN A1C" BP Readings from Last 1 Encounters: 04/26/23 99/68 Reviewed Health Maintenance below: Health Maintenance Topic Date Due HIV Screening Never done Albumin/Creatinine Ratio Never done Hepatitis C Screening Never done DTaP,Tdap,and Td Vaccines (1 - Tdap) Never done GFR 08/21/2004 Diabetes Screening 08/21/2006 Zoster Vaccines (1 of 2) Never done Cervical Cancer Screening 01/27/2013 Lipid Panel 12/02/2014 COVID-19 Vaccine ( - season) Never done Mammogram 01/02/2024 Influenza Vaccine (FLU shot) (Season Ended) 2024 Pcp today Care Gap Outreach Action Taken: Outreach not indicated documented in this encounter Plan of Treatment Scheduled Procedures Name Priority Associated Diagnoses Date/Ti me COLONOSCOPY FLEXIBLE PROXIMA L DIAGNOSTIC Recall History of colonic polyps Health Maintenance Due Date Last Done Comments HIV Screening 1974 Albumin/Creatinine Ratio 1977 Hepatitis C Screening 1977 DTaP,Tdap,and Td Vaccines (1 - Tdap) 1978 HPV/Co-Test 1989 GFR 08/21/2004 08/21/2003 Diabetes Screening 08/21/2006 08/21/2003 Zoster Vaccines (1 of 2) 2009 Cervical Cancer Screening 01/27/2013 Pap Smear 01/27/2013 01/27/2010 (Done elsewhere) Lipid Panel 12/02/2014 12/02/2009, 03/12/2009, 11/04/2009, Additional history exists COVID-19 Vaccine ( season) 2023 Mammogram 01/02/2024 01/01/2023, 12/13/2022 Influenza Vaccine (FLU shot) (Season Ended) 2024 09/19/2009, 09/19/2009 Depression Screening 01/03/2025 01/04/2024 COLONOSCOPY-EVERY 5 YRS AGES 18-100 04/26/2028 04/26/2023, 04/26/2023 Colonoscopy Discontinued 04/26/2023, 04/26/2023 Colorectal Cancer Screening [...] filedocumented as of this encounter Care Teams Metal Furniture Polisher Relationship Specialty Start Date End Date Alec Baird MD [address] [place] [address] PCP - General Family Medicine 12/08/22 documented as of this encounter
--- OUTSIDE RECORDS SUMMARY | 2024-07-02 05:10 | External Medical Summary | Summary of Care ---
Author Name Unknown Organization [facility] Address [address] [place] [address] Phone [phone] Care Team Providers Care Culinary Manager Name Role Phone Alec Baird MD Primary Care Provider [phone] Reason for Visit * Reason Onset Date Comments Abnormal Lab Results 01/07/2024 Encounter Details Date Type Department Care Team (Late st Contact Info) Description 01/07/[address] [facility] [address] [place] [address] Alec Baird MD [address] [facility] [place] [address] Abnormal Lab Results Allergies No known active allergiesdocumented as of this encounter (statuses as of 01/08/2024) Medications Medication Sig Dispensed Refills Start Date End Date Status amLODIPine Besylate 5 MG Oral Tablet (Norvasc)Indications: HTN, goal below 130/80 Take 1 Tablet by mouth in the morning. In the morning.. 90 Tablet 3 01/04/2024 Active documented as of this encounter (statuses as of 01/08/2024) Active Problems Problem Noted Date Diagnosed Date Overweight (BMI 25.0-29.9) 12/08/2022 HTN, goal below 130/80 12/08/2022 documented as of this encounter (statuses as of 01/08/2024) Resolved Problems Problem Noted Date Diagnosed Date Resolved Date Family history of ischemic heart disease 11/04/2009 12/07/2022 ADVANCE DIRECTIVE INFORMATION 06/26/2007 12/07/2022 Overview: No, Advance Directive brochure given to patient. documented as of this encounter (statuses as of 01/08/2024) Immunizations Name Administration Dates Next Due Seasonal [...] as of this encounter Miscellaneous Notes * Addendum Note - Johanny Garcia [facility] - 01/08/2024 7:40 AM EDTAddended by: JOHANNY GARCIA on: 01/08/2024 07:40 AM Modules accepted: Orders * Addendum Note - Iftikhar Keys [facility] - 01/07/2024 3:55 PM EDTAddended by: IFTIKHAR KEYS on: 01/07/2024 03:55 PM Modules accepted: Orders * Telephone Encounter - Iftikhar Keys RP - 01/07/2024 3:47 PM EDT Patient believe elevated ldl was due to dietary indiscretion. Explained risks she would like to trydietary adjustments first. Will repeat ldl in 2 months. Then if elevated would recommend starting Crestor 20. Thank you, Russell Keys, PharmD Clinical Pharmacist [facility] ([facility]) 01/07/24 3:55 PM [phone] * Telephone Encounter - Loli Garcia CPhT - 01/07/2024 3:44 PM EDT Patient retuning call, warm transferred to [facility]. Thank you, Loli Garcia, Tobacco Farmworker I [facility]ized [facility] Pharmacy Services (Formerly Telepharmacy) 01/07/2024, 3:45 PM * Telephone Encounter - GarciaJohanny pugh [facility] - 01/07/2024 3:03 PM EDT Unable to reach patient at this time. Left message on the answering machine requesting callback regarding lipid panel. Please review lipid panel with her. Her LDL is 240. Please see if she is willingto start on a statin. Advised patient to please call [phone]. Please transfer her back to myself. If I'm not available, transfer to next available [facility]. Thank you, Johanny Garcia, Leta Clinical Pharmacist [facility] ([facility]) (Formerly Telepharmacy) [phone] 01/07/2024, 3:03 PM * Telephone Encounter - Johanny Garcia [facility] - 01/07/2024 3:00 PM EDT Results for [...] panel in 3 months. Thank you, Johanny Garcia, PharmD Clinical Pharmacist [facility] ([facility]) (Formerly Telepharmacy) [phone] 01/07/2024, 3:02 PM documented in this encounter Plan of Treatment Upcoming Encounters Date Type Department Care Team (Late st Contact Info) Description 01/09/2024 4:00 PM EDT Imaging Radiology [address] [facility] [place] [address] 01/05/2025 10:20 AM EDT Office Visit Family Practice [facility] [address] [place] [address] Alec Baird MD [address] [place] [address] Scheduled Orders Name Type Priority Associated Diagnoses Orde r Schedule LIPID PANEL WITH DIRECT LDL IF TG IS HIGH Lab Routine Lipid screening Expected: 01/21/2024 (Approximate), Expires: 01/07/2025 LDL CHOLESTEROL (DIRECT MEASURE) Lab Routine Lipid screening Expected: 01/21/2024 (Approximate), Expires: 01/06/2025 Scheduled Procedures Name Priority Associated Diagnoses Date/Ti me COLONOSCOPY FLEXIBLE PROXIMA L DIAGNOSTIC Recall History of colonic polyps Health Maintenance Due Date Last Done Comments HIV Screening 1974 Hepatitis C Screening 1977 DTaP,Tdap,and Td Vaccines (1 - Tdap) 1978 HPV/Co-Test 1989 Zoster Vaccines (1 of 2) 2009 Cervical Cancer Screening 01/27/2013 Pap Smear 01/27/2013 01/27/2010 (Done elsewhere) COVID-19 Vaccine ( - 2022- season) 2023 Mammogram 01/02/2024 01/01/2023, 12/13/2022 Influenza [...] Not on filedocumented as of this encounter Visit Diagnoses Diagnosis Lipid screening- Primary Screening for lipoid disorders documented in this encounter Care Teams Culinary Manager Relationship Specialty Start Date End Date Alec Baird MD [address] [place] [address] PCP - General Family Medicine 12/08/22 documented as of this encounter
--- OUTSIDE RECORDS SUMMARY | 2024-07-02 05:10 | External Medical Summary ---
Author Name Unknown Address Unknown Organization K01:[facility] [place] [address] [place] [address] Laboratory Report Ordering Provider Test Date Status RADHA SANDERSON 01/04/2024 15:28:40 Final Observation Date Value Abnormality Reference (Units ) Status BUN 01/04/2024 15:28:40 17 6-20 (mg/dL) Final Creatinine 01/04/2024 15:28:40 0.8 0.5-1.0 (mg/dL) Final Glomerular filtration rate/1.73 sq M.predicted [Volume Rate/Area] in Serum, Plasma or Blood by Creatinine-based formula (CKD-EPI) 01/04/2024 15:28:40 83 >=60 (mL/min) Final eGFR is calculated based on the CKD-EPI 2020 equation Sodium 01/04/2024 15:28:40 137 135-146 (m mol/L) Final Potassium 01/04/2024 15:28:40 5.0 3.5-5.1 (m mol/L) Final Cl 01/04/2024 15:28:40 100 98-107 (mm ol/L) Final CO2 01/04/2024 15:28:40 27 22-32 (mmo l/L) Final Anion gap 01/04/2024 15:28:40 10 7-15 (mmol /L) Final Glucose 01/04/2024 15:28:40 86 70-120 (mg /dL) Final Calcium 01/04/2024 15:28:40 9.6 8.4-10.2 ( mg/dL) Final Performing Location [facility] [place] [address] [facility] [address]
--- OUTSIDE RECORDS SUMMARY | 2024-07-02 05:10 | External Medical Summary | Summary of Care ---
Author Name Unknown Organization [facility] Address [address] [place] [address] Phone [phone] Care Team Providers Care Plasterer Helper Name Role Phone Alec Baird MD Primary Care Provider [phone] [phone] Reason for Visit * Reason Onset Date Comments Abnormal Lab Results 01/07/2024 Encounter Details Date Type Department Care Team (Late st Contact Info) Description 01/07/2024 Telephone Family Practice [facility] [address] [place] [address] Alec Baird MD [address] [facility] [place] [address] Abnormal Lab Results Allergies No known active [...] encounter Miscellaneous Notes * Telephone Encounter - Loli Garcia CPhT - 01/07/2024 3:44 PM EDT Patient retuning call, warm transferred to [facility]. Thank you, Loli Garcia, Grades 1 Thru 6 Home Teacher I [facility]ized Clinical Pharmacy Services (Formerly Telepharmacy) 01/07/2024, 3:45 PM * Telephone Encounter - Johanny Paiz, [facility] - 01/07/2024 3:03 PM EDT Unable to reach patient at this time. Left message on the answering machine requesting callback regarding lipid panel. Please review lipid panel with her. Her LDL is 240. Please see if she is willingto start on a statin. Advised patient to please call [phone]. Please transfer her back to myself. If I'm not available, transfer to next available [facility]. Thank you, Johanny Paiz PharmD Clinical Pharmacist [facility] ([facility]) (Formerly Telepharmacy) [phone] 01/07/2024, 3:03 PM * Telephone Encounter - [...] panel in 3 months. Thank you, Johanny Paiz PharmD Clinical Pharmacist [facility] ([facility]) (Formerly Telepharmacy) [phone] 01/07/2024, 3:02 PM documented in this encounter Plan of Treatment Upcoming Encounters Date Type Department Care Team (Late st Contact Info) Description 01/09/2024 4:00 PM EDT Imaging Radiology [address] [place] [address] 01/05/2025 10:20 AM EDT Office Visit Family Practice [facility] [address] [place] [address] Alec Baird MD [address] [facility] [place] [address] Scheduled Procedures Name Priority Associated Diagnoses Date/Ti [...] filedocumented as of this encounter Care Teams Plasterer Helper Relationship Specialty Start Date End Date Alec Baird MD [address] [place] [address] PCP - General Family Medicine 12/08/22 documented as of this encounter
--- OUTSIDE RECORDS SUMMARY | 2024-07-02 05:10 | External Medical Summary | Summary of Care ---
Author Name Unknown Organization [facility] Address [address] [place] [address] Phone [phone] Care Team Providers Care Gis Specialist Name Role Phone Alec Baird MD Primary Care Provider [phone] [phone] Reason for Visit * Reason Comments Physical-Exam Pt here for cpe, den ies any concerns Encounter Details Date Type Department Care Team (Late st Contact Info) Description 01/04/2024 2:40 PM EDT Office Visit Family [facility] [address] [facility] [address] [facility]c Baird MD [address] [facility] [address] Routine general medical examination at a health care facility*; HTN, goal below 130/80; Overweight (BMI 25.0-29.9); Encounter for screening mammogram for breast cancer Allergies No known active allergiesdocumented as of this encounter (statuses as of 01/06/2024) Medications Medication Sig Dispensed Refills Start Date End Date Status amLODIPine Besylate 5 MG Oral Tablet (Norvasc)Indicat ions:HTN, goal below 130/80 Take 1 Tablet by mouth in the morning. In the morning.. 90 Tablet 3 01/04/2024 Active Ondansetron HCl 4 MG Oral Tablet (Zofran) Take 1 Tablet by mouth every 8 hours as needed for Nausea. 0 4 Discontinued Prochlorperazine Maleate 10 MG Oral Tablet (Compazine) Take 1 Tablet by mouth every 6 hours as needed for Nausea. 0 4 Discontinued Meclizine HCl 25 MG Oral Tablet (Antivert) Take 1 Tablet by mouth 3 times a day as needed. 0 4 Discontinued amLODIPine Besylate 5 MG Oral Tablet (Norvasc) TAKE 1 TABLET BY MOUTH EVERY MORNING 30 Tablet 0 12/29/2023 4 Discontinued(Refi ll) documented as of this encounter (statuses as of 01/06/2024) Active Problems Problem Noted Date Diagnosed Date Overweight (BMI 25.0-29.9) 12/08/2022 HTN, goal below 130/80 12/08/2022 documented as of this encounter (statuses as of 01/06/2024) Resolved Problems Problem Noted Date Diagnosed Date Resolved Date Family history of ischemic heart disease 11/04/2009 12/07/2022 ADVANCE DIRECTIVE INFORMATION 06/26/2007 12/07/2022 Overview: No, Advance Directive brochure given to patient. documented as of this encounter (statuses as of 01/06/2024) Immunizations Name Administration Dates Next Due Seasonal [...] on file documented as of this encounter Last Filed Vital Signs Vital Sign Reading Time Taken Comments Blood Pressure 122/80 01/04/2024 2:37 PM EDT Pulse 88 01/04/2024 2:37 PM EDT Temperature 36.6 C (97.8 F) 01/04/2024 2:37 PM ED T Respiratory Rate 18 01/04/2024 2:37 PM EDT Oxygen Saturation 98% 01/04/2024 2:37 PM EDT Inhaled Oxygen Concentration - - Weight 65.8 kg (145 lb) 01/04/2024 2:37 PM EDT Height 162.6 cm (5' 4") 01/04/2024 2:37 PM EDT Body Mass Index 24.89 01/04/2024 2:37 PM EDT documented in this encounter Progress Notes * Alec Baird MD - 01/06/2024 12:10 PM EDT SUBJECTIVE: Margarita Patricia is a 63 year old female. Chief Complaint Patient presents with Physical-Exam Pt here for cpe, denies any concerns HPI: Margarita is a very pleasant and overall healthy 63 year old female here for a routine visit. BP under excellent control. She has had a somewhat stressful year including the of her father. We reviewed her labs and health maintenance items. Fortunately she remains in excellent health. Patient Active Problem List Diagnosis Code Overweight (BMI 25.0-29.9) E66.3 HTN, goal below 130/80 I10 Current Outpatient Medications Medication Sig Dispense Refill amLODIPine Besylate 5 MG Oral Tablet (Norvasc) Take 1 Tablet by mouth in the morning. In the morning.. 90 Tablet 3 No current facility-administered medications for this visit. Allergy: Review of patient's allergies indicates: No Known Allergies OBJECTIVE: BP 122/80 | Pulse 88 | Temp 36.6 C (97.8 F) (Tympanic) | Resp 18 | Ht 1.626 m (5' 4") | Wt 65.8kg (145 lb) | SpO2 98% | BMI 24.89 kg/m | BSA 1.72 m General: alert, healthy, and no distress Head: Normocephalic, No masses, lesions, tenderness or abnormalities Neck: supple, no adenopathy, no bruits, thyroid normal size, non-tender, without nodularity Lungs: chest symmetric with normal AP diameter, no chest deformities noted, no chest wall tenderness, lungs clear to auscultation Heart: regular rate & rhythm, no murmur, and no gallops Extremities: less than 2 second capillary refill, no joint deformities, effusion, or inflammation Neuro Exam: alert & oriented x 3 with fluent speech, no focal motor/sensory deficits, gait normal, reflexes normal and symmetric Skin: skin color, texture, turgor are normal, no rashes or significant lesions ASSESSMENT AND PLAN: (Z00.00) Routine general medical examination at a health care facility (primary encounter diagnosis) Plan: diet/exercise recommended; health maintenance reviewed (I10) HTN, goal below 130/80 Plan: amLODIPine Besylate 5 MG Oral Tablet (Norvasc) -DASH diet (Z12.31) Encounter for screening mammogram for breast cancer Plan: MAMMOGRAM SCREENING BILATERAL Follow up as needed. No other complaints were offered at this time. Alec Baird MD documented in this encounter Nursing Notes * Carlene Krishnamurthy LPN - 01/04/2024 2:36 PM EDT The patient has been properly identified by confirmation of name and date of . Chief Complaint Patient presents with Physical-Exam Pt here for cpe, denies any concerns documented in this encounter Plan of Treatment Upcoming Encounters Date Type Department Care Team (Late st Contact Info) Description 01/09/2024 4:00 PM EDT Imaging Radiology [facility] [place] [address] [facility] [place] [address] 01/05/2025 10:20 AM EDT Office Visit Family Practice [facility] [address] [facility] [place] [address] Alec Baird MD 132 [facility] [place] [address] Scheduled Orders Name Type Priority Associated Diagnoses Orde r Schedule MAMMOGRAM SCREENING BILATERAL Medical Imaging Routine Encounter for screening mammogram for breast cancer Expected: 01/05/2024, Expires: 02/02/2025 Scheduled Procedures Name Priority Associated Diagnoses Date/Ti [...] 04/26/2028 04/26/2023, 04/26/2023 Lipid Panel 01/03/2029 01/04/2024, 03/12/2009, 12/02/2009, Additional history exists Colonoscopy Discontinued 04/26/2023, [...] as of this encounter Visit Diagnoses Diagnosis Routine general medical examination at a health care facility- Primary HTN, goal below 130/80 Unspecified essential hypertension Overweight (BMI 25.0-29.9) Overweight Encounter for screening mammogram for breast cancer documented in this encounter Care Teams Gis Specialist Relationship Specialty Start Date End Date Alec Baird MD [address] [place] [address] PCP - General Family Medicine 12/08/22 documented as of this encounter
--- OUTSIDE RECORDS SUMMARY | 2024-07-02 05:10 | External Medical Summary | Summary of Care ---
Author Name Unknown Organization [facility] Address [address] [place] [address] Phone [phone] Care Team Providers Care Operator Name Role Phone Alec Baird MD Primary Care Provider [phone] [phone] Reason for Visit * Reason Onset Date Comments Abnormal Lab Results 01/07/2024 Encounter Details Date Type Department Care Team (Late st Contact Info) Description 01/07/2024 Telephone Family Practice [facility] [address] [place] [place] [address] Alec Baird MD [address] [facility] [place] [address] Abnormal Lab Results Allergies No known active [...] money to buy more. Never true 01/04/20 Within the past 12 months, t he [...] encounter Miscellaneous Notes * Addendum Note - Iftikhar Keys [facility] - 01/07/2024 3:55 PM EDTAddended by: [...] Clinical Pharmacy Services ([facility]) 01/07/24 3:55 PM [phone] * Telephone Encounter - Loli Garcia CPhT - 01/07/2024 3:44 PM EDT Patient retuning call, warm transferred to [facility]. Thank you, Loli Garcia, Sand Mixer I Centralized Clinical Pharmacy Services (Formerly Telepharmacy) 01/07/2024, 3:45 PM * Telephone Encounter - Johanny Paiz [facility] - 01/07/2024 3:03 PM EDT Unable to reach patient at this time. Left message on the answering machine requesting callback regarding lipid panel. Please review lipid panel with her. Her LDL is 240. Please see if she is willingto start on a statin. Advised patient to please call [phone]. Please transfer her back to myself. If I'm not available, transfer to next available [facility]. Thank you, Johanyn Paiz PharmD Clinical Pharmacist Centralized [facility] Pharmacy Services ([facility]) (Formerly Telepharmacy) [phone] 01/07/2024, 3:03 PM * Telephone Encounter - Johanny Paiz [facility] - 01/07/2024 3:00 PM EDT Results [...] Pharmacist Centralized Clinical Pharmacy Services ([facility]) (Formerly [facility]) [phone] 01/07/2024, 3:02 PM documented in this encounter Plan of Treatment Upcoming Encounters Date Type Department Care Team (Late st Contact Info) Description 01/09/2024 4:00 PM EDT Imaging Radiology [address] [place] [address] 01/05/2025 10:20 AM EDT Office Visit Family Practice [facility] [address] [place] [address] Alec Baird MD [address] [place] [address] Scheduled Orders Name Type Priority Associated Diagnoses [...] 04/26/2028 04/26/2023, 04/26/2023 Lipid Panel 01/03/2029 01/04/2024, 03/0 12/2009, 12/02/2009, Additional history exists Colonoscopy Discontinued 04/26/2023, [...] disorders documented in this encounter Care Teams Operator Relationship Specialty Start Date End Date Alec Baird MD [address] [place] [address] PCP - General Family Medicine 12/08/22 documented as of this encounter
--- OUTSIDE RECORDS SUMMARY | 2024-07-02 05:10 | External Medical Summary ---
Author Name Unknown Address Unknown Organization [id number]:[facility] [address] [facility] [address] Laboratory Report Ordering Provider Test Date Status RADHA SANDERSON 01/04/2024 15:28:40 Final Observation Date Value Abnormality Reference (Units ) Status Triglyceride 01/04/2024 15:28:40 140 <=174 ( mg/dL) Final Triglyceride Reference Range s (mg/dL):
<150 Acceptable
150-174 Borderline high
175-499 High
>=500 Very high Cholesterol 01/04/2024 15:28:40 327 Above high normal <200 (mg/dL) Final Total Cholesterol Reference Ranges (mg/dL):
<200 Desirable
200-239 Borderline high
>=240 High HDL 01/04/2024 15:28:40 59 >49 (mg/dL ) Final HDL Cholesterol Reference Ra nges (mg/dL):
>=60 High (Desirable)
<50 Low (Undesirable) For Females
<40 Low (Undesirable) For Males NON-HDL CHOLESTEROL 01/04/2024 15:28:40 268 Above high normal <=159 (mg/dL) Final Non-HDL Cholesterol Referenc e Range (mg/dL):
<100 Target level for high risk ASCVD patient
<130 Optimal for general population
130-159 Near optimal for general population
160-189 Borderline High
190-219 High
>=220 Very High LDL, (calculated) 01/04/2024 15:28:40 240 Above high n ormal <=129 (mg/dL) Final LDL Cholesterol Reference Ra nges (mg/dL):
<70 Target level for high risk ASCVD patient
<100 Optimal for general population
100-129 Near optimal for general population
130-159 Borderline high
160-189 High
>=190 Very high Performing Location [facility] - [address] [facility] [address]
--- OUTSIDE RECORDS SUMMARY | 2024-07-02 05:10 | External Medical Summary | Summary of Care ---
Author Name Unknown Organization [facility] Address [address] [place] [address] Phone [phone] Care Team Providers Care Polish Maker Name Role Phone Alec Baird MD Primary Care Provider [phone] Reason for Visit * Reason Comments Outpatient Testing Encounter Details Date Type Department Care Team (Late st Contact Info) Description 01/04/2024 3:30 PM EDT Laboratory Laboratory, [facility] [address] [place] [address] [facility] [address] [place] [address] HTN, goal below 130/80; Lipid screening; Screening for diabetes mellitus Allergies No known active allergiesdocumented as of [...] Description 01/09/2024 4:00 PM EDT Imaging Radiology [facility] [address] [place] [address] 01/05/2025 10:20 AM EDT Office Visit Family Practice [facility] [address] [place] [address] Alec Baird MD [address] [place] [address] Pending Results Name Type Priority Associated Diagnoses Date /Time BASIC METABOLIC PANEL Lab Routine HTN, goal below 130/80 01/04/2024 3:28 PM EDT LIPID PANEL WITH DIRECT LDL IF TG IS HIGH Lab Routine Lipid screening 01/04/2024 3:28 PM EDT HEMOGLOBIN A1C Lab Routine Screening for diabetes mellitus 01/04/2024 3:28 PM EDT ALBUMIN / CREATININE RATIO, URINE Lab Routine HTN, goal below 130/80 01/04/2024 3:31 PM EDT Scheduled Procedures Name Priority Associated Diagnoses Date/Ti [...] 01/27/2010 (Done elsewhere) Lipid Panel 12/02/2014 12/02/2009, 12/2009, 11/04/2009, Additional history exists COVID-19 Vaccine ( - season) 2023 Mammogram 01/02/2024 01/01/2023, 12/13/2022 [...] as of this encounter Visit Diagnoses Diagnosis HTN, goal below 130/80 Unspecified essential hypertension Lipid screening Screening for lipoid disorders Screening for diabetes mellitus documented in this encounter Care Teams Polish Maker Relationship Specialty Start Date End Date Alec Baird MD [address] [place] [address] PCP - General Family Medicine 12/08/22 documented as of this encounter
[2024-07-02 07:10] LABS: Estimated Average Glucose 131 mg/dl; Hemoglobin A1C 6.2 % (4.5-5.6)
--- NOTE | 2024-07-02 10:21 | Consultation ---
Date of Consultation July 02, 2024 Assessment & Plan (1) Symptomatic stenosis of right carotid artery: Pt with severe R ICA stenosis of 90% and R hemispheric TIA sx. Pt discussed with Dr Frankel. Recommends pt consider surgical intervention via carotid endarterectomy or TCAR. Both procedures discussed with pt at length. Will discuss further with pt after neuro eval. Pt is agreeable. She has been started on DAPT and statin medications. History of Present Illness Reason for Consultation: R ICA stenosis Attending Physician: Isis Coleman MD History of Present Illness 63 yo f with hx of htn, admitted with R hemispheric TIA, seen in consultation for R ICA stenosis noted on CTA neck. 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 States she was immediately concerned and called her to take her to hospital. Numbness lasted about 15 minutes, heaviness/tingling lasted about 30-45 min. It has resolved completely. No previous similar sx, no hx of TIA or CVA in past. While getting her brain MRI overnight, she states she "passed out" for a few minutes. [place] hot/flushed and was unable to respond. States she remembers everyone talking to her, but was unable to respond. Denies previous similar sx. Denies ENCINAS, fever, recent illness, chest pain, palpitations, abd pain, N/V, rest pain, claudication, other complaints. Lifelong nonsmoker. Pt is very active. CTA neck demonstrates severe R ICA stenosis of 90%. Allergies Allergy/AdvReac Type Severity Reaction Status Date / Time No Known Allergies Allergy Unverified 07/01/24 19:03 Home Medications Medication Instructions Recorded Confirmed Type amlodipine 5 mg tablet 5 mg PO DAILY #30 tabs 12/05/22 07/01/24 Rx Patient History Medical History HTN (hypertension) Surgical History No pertinent past surgical history Social History Smoking Status: Never smoker Hx Alcohol Use: Yes Hx Substance Use: No Preferred Language: Romansh Communication Ability: Effective Hydroelectric Station Operator Required: No Beliefs That Will Affect Care: Evangelical Current Living Situation: Spouse Other Information That Helps Us Care for You: No Feels Safe at Home: Yes Safety Concerns: Feels Safe At This Time Assistive Devices: None and Glasses Review of Systems Review of Systems: All systems reviewed & are unremarkable except as noted in HPI & below Physical Exam Constitutional: WD/WN, vitals as above healthy appearing, cooperative and comfortable; not in distress ENMT: Ears: no hearing impairment Neck: trachea midline Respiratory: normal respiratory effort, lungs clear to auscultation Cardiovascular: Rate/Rhythm: regular rate and regular rhythm Vessels: + carotid bruit, femoral pulses present, posterior tibial pulses present, dorsalis pedis pulses present and radial pulses present; + abnormal peripheral pulses Extremities: normal capillary refill; no edema Gastrointestinal (Abdomen): Inspection/Auscultation: abdomen normal to inspection and normal bowel sounds Percussion/Palpation: abdomen soft; abdomen nontender Musculoskeletal: no cyanosis or clubbing, extremities motor strength 5/5 Skin: no rashes, warm and dry Neurologic: moves all extremities and awake; no focal motor deficits and not confused Psychiatric: A+Ox3, euthymic affect Results & Data Vital Signs (Past 12 Hours) Vital Signs Temp Pulse Pulse Resp BP Pulse Ox O2 Del Method 07/02/24 07:53 128/80 95 Room Air 07/02/24 04:10 36.5 C 89 18 151/91 H 95 Room Air 07/01/24 22:25 36.4 C L 84 17 119/75 92 Room Air 07/01/24 22:17 84
[2024-07-02] MEDS: amLODIPine BESYLATE 5 MG TAB PO SCH (11:09)
[2024-07-02] MEDS: CLOPIDOGREL BISULFATE 75 MG TAB PO SCH (11:09)
[2024-07-02] MEDS: ASPIRIN 81 MG ECTAB PO SCH (11:09)
[2024-07-02] MEDS: ATORVASTATIN 40 MG TAB PO SCH (11:09)
--- NOTE | 2024-07-02 13:46 | Neurology Consultation ---
Date of Consultation July 02, 2024 Assessment & Plan (1) Stroke-like symptoms: Recommend continued stroke work up to include the following: Echocardiogram as part of complete stroke workup Continue frequent neurological assessments Obtain stat CT brain without contrast for any acute neurological decline Continue to monitor/control blood pressure & blood glucose Continue to monitor telemetry closely Recommend ZioPatch at DC if no evidence of arrhythmia during inpatient monitoring Continue to monitor renal and hepatic function, keep euvolemic Metabolic workup should include hgbA1c, fasting lipids, homocysteine, TSH, D Dimer, RPR, urinalysis Recommend DAPT for at least 3 weeks Recommend high dose statin therapy indefinitely if tolerated Ok from neurology perspective for VTE prophylaxis PT/OT/SLT to eval and treat Recommend eval for BETH and consider outpatient polysomnography (2) Symptomatic stenosis of right carotid artery: Agree with vascular surgery recommendations for intervention (3) Syncope and collapse: Continue to monitor telemetry closely Monitor orthostatic vital signs Obtain EEG during this hospitalization Provide seizure precautions Utilize benzodiazepines emergently for any breakthrough clinical seizure like activity No driving per [place] state law following episode of loss of conscioussness Telehealth Consultation Telehealth Information Telehealth Information: I performed this visit using a real-time telehealth connection between my location and the patients location ([facility]). After connecting through interactive tele-video, patient was identified by name and date of and/or wristband check.Patient (or authorized healthcare enrollment representative) was informed that this was a telemedicine visit and it was being conducted confidentially over secure lines. My office door was closed and no one else was present in the room with me.Patient (or authorized healthcare enrollment representative) provided consent to proceed with the visit, expressed an understanding of privacy and security of the telemedicine visit, and gave permission to have a hospital enrollment representative in the room in order to assist with the visit and to conduct portions of the visit, as needed. I informed the patient (or authorized healthcare enrollment representative) that I reviewed their record and presented the opportunity for them to ask any questions regarding the visit today. The patient agreed to participate. History of Present Illness Reason for Consultation: Stroke like symptoms Requesting Physician: Dr. Marinelli Attending Physician: Isis Coleman MD History of Present Illness 63yo female presented with acute onset LUE and facial paresthesia. She has undergone emergent stroke imaging including CT brain without contrast revealing no overt evidence of hemorrhage. CT angiographic studies of head and neck reveal significant right ICA stenosis. MRI brain without evidence of acute ischemic stroke. She has been seen by vascular surgery and she is agreeable to undergoing intervention for what appears to be symptomatic right ICA stenosis. She has undergone EEG as well. Stroke symptoms, LUE and facial sensory symptoms, have complete resolved. I have performed televideo consultation. She is alert & oriented; able to answer all questions appropriately, name objects on televideo monitor, repeat phrases and perform complex/embedded commands without deficit. Neurological exam is non lateralizing/nonfocal in terms of motor strength and coordination. Unfortunately she reports event of loss of consciousness, following undergoing MRI imaging last evening, which she describes as happening multiple times in the past. No reported tongue biting or loss of bowels or bladder. She reports feeling hot and telling staff she is going to pass out. Then she awoke to 10-15 people around her. Allergies Allergy/AdvReac Type Severity Reaction Status Date / Time No Known Allergies Allergy Unverified 07/01/24 19:03 Home Medications Medication Instructions Recorded Confirmed Type amlodipine 5 mg tablet 5 mg PO DAILY #30 tabs 12/05/22 07/01/24 Rx Patient History Medical History HTN (hypertension) Surgical History No pertinent past surgical history Social History Smoking Status: Never smoker Hx Alcohol Use: Yes Hx Substance Use: No Preferred Language: Faroese Communication Ability: Effective News Videographer Required: No Beliefs That Will Affect Care: Mandaen Current Living Situation: Spouse Other Information That Helps Us Care for You: No Feels Safe at Home: Yes Safety Concerns: Feels Safe At This Time Assistive Devices: None and Glasses Physical Exam Neurological Examination: Mental Status: Awake and alert. Oriented to person, place, and time. Fluency naming repetition and comprehension appear grossly intact. Affect remains appropriate. CN testing: I: Denies changes in ability to smell II:Reports no changes in visual acuity III/IV/: No evidence of gaze preference, hippus, nystagmus or roving eye movements V: Facial sensation reportedly grossly intact to light touch bilaterally VII: Facial movements appear without evidence of asymmetry VIII: Hearing appears grossly intact to loud voice bilaterally IX/X: Palate appears to elevate symmetrically XI: Shoulder shrug appears symmetric/ grossly intact bilaterally XII: Tongue protrudes midline without evidence of biting Motor exam: Strength appears grossly intact/symmetric in all extremities Sensory: Sensation is reportedly grossly intact throughout Coordination: Finger to nose and heel to hope were intact. No apparent evidence of dysmetria or dysdiadochokinesia Reflexes: Deferred Gait: Deferred Results & Data Vital Signs (Past 12 Hours) Vital Signs Temp Pulse Resp BP Pulse Ox O2 Del Method 07/02/24 12:00 36.6 C 95 H 18 100/74 98 Room Air 07/02/24 07:53 128/80 95 Room Air 07/02/24 04:10 36.5 C 89 18 151/91 H 95 Room Air Laboratory Results Abnormal lab results 07/01/24 07/01/24 07/01/24 Range/Units 14:15 14:22 16:05 WBC (4.8-10.8) K/ul Neut # (Auto) (1.40-6.50) K/uL [place] # (Auto) 0.88 H (0.11-0.59) K/uL POC Total CO2 21 L (24-31) mmol/L BUN/Creatinine Ratio 22.2 H (10-20) Glucose (70-99(Fasting)) mg/dl POC Glucose (70-99) mg/dl Hemoglobin A1c (4.5-5.6) % Calcium (8.6-10.3) mg/dl Alkaline Phosphatase 127 H (34-104) U/L Cholesterol (0-200) mg/dl Cholesterol/HDL Ratio (0-5) Ur Leukocyte Esterase 2+ H (Negative) Urine WBC (Auto) 6-10 H (0-5) /hpf U Epithel Cells (Auto) 6-10 H (0-2) /hpf 07/01/24 07/02/24 Range/Units 22:23 03:46 WBC 11.04 H (4.8-10.8) K/ul Neut # (Auto) 8.87 H (1.40-6.50) K/uL [place] # (Auto) (0.11-0.59) K/uL POC Total CO2 (24-31) mmol/L BUN/Creatinine Ratio (10-20) Glucose 115 H (70-99(Fasting)) mg/dl POC Glucose 115 H (70-99) mg/dl Hemoglobin A1c 6.2 H (4.5-5.6) % Calcium 8.4 L (8.6-10.3) mg/dl Alkaline Phosphatase (34-104) U/L Cholesterol 321 H (0-200) mg/dl Cholesterol/HDL Ratio 5.4 H (0-5) Ur Leukocyte Esterase (Negative) Urine WBC (Auto) (0-5) /hpf U Epithel Cells (Auto) (0-2) /hpf Diagnostic Findings Chest X-Ray 07/01/24 14:10 XR chest 1V portable HISTORY: 63 years-old Female neuro deficit, acute stroke suspected COMPARISON: 12/05/2022 TECHNIQUE: AP view of the chest FINDINGS: Cardiomediastinal and hilar silhouettes are within normal limits. No pneumothorax, pleural effusion or airspace consolidation. Bones appear grossly intact. IMPRESSION: No acute process. ACT 112: Negative or not required by law. The above report was generated using voice recognition software. It may contain grammatical, syntax or spelling errors. Electronically signed by: Uday Rawls M.D. 07/01/2024 2:[address] 07/01/24 14:10 CT OF THE HEAD WITHOUT CONTRAST CLINICAL HISTORY: neuro deficit, acute stroke suspected COMPARISON STUDY: Head CT December 05, 2022. TECHNIQUE: Helical axial images of the head were obtained without IV contrast. Automated exposure control was utilized for the study. A dose lowering technique was utilized adhering to the principles of ALARA. FINDINGS: No acute intracranial hemorrhage, midline shift or mass effect is present. The ventricular system is unremarkable. The basal cisterns are patent. No extra-axial collections are present. There are no findings to suggest acute dural sinus thrombosis or acute territorial infarct. No significant calvarial abnormalities are present. Visualized portions of the sinuses and mastoid air cells are clear. IMPRESSION: No acute intracranial findings. ACT 112: Negative or not required by law. Electronically signed by: Naveed Reynolds M.D. 07/01/2024 2:33 PM Head CTA 07/01/24 14:10 CT angio head w con CLINICAL HISTORY: 63 years-old Female with neuro deficit, acute stroke bui spected. Acute stroke like symptoms COMPARISON STUDY: Head CT of same day TECHNIQUE: Following the IV administration of 119 cc of Optiray, CT angiogram of the brain was performed from the skull base to the vertex. Images are reviewed in the axial, sagittal, and coronal planes. 3-D MIPS images are created and assessed. IV contrast was administered without complication. All measurements were obtained according to NASCET criteria. A dose lowering technique was utilized adhering to the principles of ALARA. FINDINGS: CT ANGIOGRAM OF THE BRAIN: The imaged bilateral internal carotid arteries are patent. The bilateral anterior and middle cerebral arteries are also patent. The vertebrobasilar system and posterior cerebral arteries are widely patent. There is no aneurysm, high-grade stenosis, or proximal branch occlusion identified. Dural sinuses appear patent. IMPRESSION: Unremarkable CTA of the head. ACT 112: Negative or not required by law. The above report was generated using voice recognition software. It may contain grammatical, syntax or spelling errors. Electronically signed by: Uday Rawls M.D. 07/01/2024 2:41 PM Neck CTA 07/01/24 14:10 CT angio neck with con CLINICAL HISTORY: neuro deficit, acute stroke suspected TECHNIQUE: CT angiography of the neck was performed following intravenous administration of iodinated contrast. Coronal and sagittal MIPS were obtained from the axial data set and were submitted for review. Automated dose lowering techniques and/or adjustment according to patient size were utilized for this examination. All measurements were calculated based on NASCET criteria. CT DOSE: 1256.14 mGy.cm Comparison: None available at the time of this dictation. FINDINGS: Small thyroid nodules are seen which do not require follow-up by ACR criteria. CTA Neck: A 3 vessel aortic arch is shown. There is no significant atherosclerotic plaque in the aortic arch or the origins of the innominate, left common carotid, and left subclavian arteries. There is hemodynamically significant atherosclerosis of the right carotid bulb with approximately 90% stenosis. The left vertebral artery is dominant. IMPRESSION: Hemodynamically significant stenosis of the right internal carotid artery with approximately 90% narrowing. Assessment of stenosis of the internal carotid arteries is based on NASCET criteria. ACT 112: Negative or not required by law. Electronically signed by: Richard Regan M.D. 07/01/2024 2:32 PM Brain MRI 07/01/24 15:27 Exam(s): MRI HEAD W/WO Contrast EXAM: MR Head Without and With Intravenous Contrast CLINICAL HISTORY: Reason for exam: Stroke r/o. TECHNIQUE: Magnetic resonance images of the head/brain without and with intravenous contrast in multiple planes. CONTRAST: Contrast must be dictated COMPARISON: Prior head CT from July 01, 2024. FINDINGS: Brain: Mild nonspecific white matter changes. The flow voids at the base of the brain are intact. No mass. No hemorrhage. No acute infarct. Normal enhancement of the brain parenchyma. Ventricles: Unremarkable. No ventriculomegaly. Bones/joints: Unremarkable. No acute fracture. Sinuses: Unremarkable as visualized. No acute sinusitis. Mastoid air cells: Unremarkable as visualized. No mastoid effusion. Orbits: Unremarkable as visualized. IMPRESSION: No evidence of acute intracranial pathology. Mild nonspecific white matter changes. Electronically signed by: Darshana Griffith MD 07/02/24 00:10 AM Medications Administered Home Medications Medication Instructions Recorded Confirmed Last Taken amlodipine 5 mg tablet 5 mg PO DAILY #30 tabs 12/05/22 07/01/24 Unknown Active Medications Generic Name Dose Route Start Last Admin Trade Name Freq PRN Reason Stop Dose Admin Amlodipine Besylate 5 mg 07/02/24 09:00 07/02/24 11:09 Amlodipine Besylate 5 Mg Tab PO 08/01/24 08:59 5 mg DAILY PADDY Administration Aspirin 81 mg 07/02/24 09:00 07/02/24 11:09 Aspirin 81 Mg Ectab PO 08/01/24 08:59 81 mg QAM PADDY Administration Atorvastatin Calcium 40 mg 07/02/24 09:00 07/02/24 11:09 Atorvastatin 40 Mg Tab PO 08/01/24 08:59 40 mg QAM PADDY Administration Clopidogrel Bisulfate 75 mg 07/02/24 09:00 07/02/24 11:09 Clopidogrel Bisulfate 75 Mg Tab PO 08/01/24 08:59 75 mg QAM PADDY Administration Enoxaparin Sodium 40 mg 07/01/24 21:00 07/01/24 20:12 Enoxaparin Inj 40 Mg/0.4 Ml Syr SQ 07/31/24 20:59 40 mg Q24H PADDY Administration Potassium Chloride/Sodium Chloride 20 meq in 1,000 mls @ 60 mls/hr 07/01/24 22:00 07/02/24 03:28 Normal Saline W/20 Meq Kcl IV 07/02/24 14:39 Infused .[id number] Infusion
--- NOTE | 2024-07-02 14:04 | Pharmacy Report ---
- Date of Service July 02, 2024 - Pharmacy CVA/TIA Medication Review Medications to Prevent Stroke handout has been added to the patients discharge packet. Antiplatelet(s) * Aspirin 81 mg PO daily + clopidogrel 75 mg PO daily x at least 3 weeks (per neurology) Cholesterol * High intensity statin: atorvastatin 40 mg daily DVT Prophylaxis * Enoxaparin SQ Therapeutic Anticoagulation * No history of Afib/Aflutter noted Type 2 Diabetes * Patient does not have T2DM
--- NOTE | 2024-07-02 15:10 | Electrocardiogram Report ---
Test Reason : Blood Pressure : */* mmHG Vent. Rate : 91 BPM Atrial Rate : 91 BPM P-R Int : 130 ms QRS Dur : 78 ms QT Int : 334 ms P-R-T Axes : 42 -3 27 degrees QTcB Int : 410 ms Normal sinus rhythm Normal ECG When compared with ECG of 05-Dec-2022 19:24, No significant change was found Confirmed by Iftikhar Bhardwaj ([id number]) on 07/02/2024 3:09:55 PM Referred By: REFERRED SELF Confirmed By: Iftikhar Bhardwaj
--- NOTE | 2024-07-02 15:14 | Electrocardiogram Report ---
Test Reason : Blood Pressure : */* mmHG Vent. Rate : 83 BPM Atrial Rate : 83 BPM P-R Int : 184 ms QRS Dur : 84 ms QT Int : 386 ms P-R-T Axes : 47 -5 34 degrees QTcB Int : 453 ms Normal sinus rhythm Possible Left atrial enlargement Borderline ECG When compared with ECG of 01-Jul-2024 14:14, (unconfirmed) No significant change was found Confirmed by Iftikhar Bhardwaj ([id number]) on 07/02/2024 3:14:33 PM Referred By: REFERRED SELF Confirmed By: Iftikhar Bhardwaj
--- NOTE | 2024-07-02 16:40 | Hospitalist Progress Note ---
Date of Service July 02, 2024 Assessment & Plan (1) Stroke-like symptoms: (2) Right-sided carotid artery disease: Plan Margarita Patricia is a overall healthy 63y/o F with PMHx significant only for HTN, HLD/not on meds presented to the ED 07/01 with stroke-like symptoms. She is being managed for the following: Stroke-Like Symptoms: KLAUDIA stenosis Hyperlipidemia Prediabetes Patient presented with numbness and tingling in her left arm and bilateral facial numbness. Admitting CT head, CTA head An MRI brain with no acute finding. Admitting CTA neck with hemodynamically significant stenosis of the R ICA with approximately 90% narrowing. C/w DAPT 07/01 and statin. Repeat A1c in 3 months, encourage lifestyle modifications - d/w patient 07/02. Avoid omeprazole while on plavix. Neurology evaluated - okay for vascular indication, Zio patch monitoring on discharge, DAPT for 3 weeks, statin, eval for BETH and outpatient sleep study. PT/OT Vascular surgery on board, will follow recommendations. Syncope and collapse: Patient noted to be shaking by charge histotechnologist after MRI procedure 07/01 , possible seizure for MRI take, episode lasted less than a minute, no tongue biting or incontinence symptoms noted. CPR initiated due to uncertainty regarding presence of pulse but patient promptly woke up. Patient was not confused waking up. EEG read pending. Orthostatic vitals. Seizure precautions. Utilize benzos emergently for any breakthrough clinical seizure. No driving per [place] state law following episode of loss of consciousness. Patient to follow-up with neurology upon discharge. Neurology evaluated, appreciate recommendation. HTN: continue home amlodipine. stable. DVT Prophylaxis: SQ Lovenox Code Status: FULL CODE PCP: Alec Baird MD Admission and Anticipated Discharge Date Admission Date: July 01, 2024 Subjective Patient was seen and examined at bedside. Patient was lying in bed, on room air, NAD, resting comfortably. Patient reports improvement in her numbness and tingling sensation, denies any new symptoms. Patient reports eating okay and moving bowels okay. Physical Exam Physical Exam: GENERAL: Alert and oriented x3. NAD, on RA. HEENT: No pallor, no icterus. Pupils equal, round and reactive to light. Oral mucosa moist. NECK: No JVD, no neck masses. HEART: S1 and S2 heard. Regular rate and rhythm. No murmur, no gallop. RESPIRATORY SYSTEM: Normal AP diameter. No accessory muscle use. No wheezing, no crackles. ABDOMEN: Soft, bowel sounds present, nontender, no distention. CENTRAL NERVOUS SYSTEM: No facial droop. Speech is clear. Obeys simple commands. Moves extremities. EXTREMITIES: No edema, no erythema seen. Results & Data Results & Data Vital Signs (Past 12 Hours) Vital Signs Temp Pulse Resp BP Pulse Ox O2 Del Method 07/02/24 16:00 36.5 C 86 20 127/84 96 Room Air 07/02/24 12:00 36.6 C 95 H 18 100/74 98 Room Air 07/02/24 07:53 128/80 95 Room Air (2) Right-sided carotid artery disease Carotid artery disease type: unspecified Qualified Code(s): I77.9 - Disorder of arteries and arterioles, unspecified
[2024-07-03 06:31] LABS: Hematocrit (blood only) 40.6 % (37.0-47.0); Hemoglobin 13.7 g/dl (12.0-16.0); Mean Corpuscular Volume 86.6 fL (80.0-100.0); Red Blood Count 4.69 M/uL (4.20-5.40); White Blood Count 6.67 K/ul (4.8-10.8)
[2024-07-03 06:32] LABS: Mean Corpuscular Hemoglobin 29.2 pg (25.0-34.0); Mean Corpuscular Hgb Conc 33.7 g/dL (32.0-36.0); Mean Platelet Volume 10.5 fL (9.4-12.4); Platelet Count 230 K/uL (130-400); RDW Coefficient of Variation 14.4 % (11.5-14.5); RDW Standard Deviation 45.5 fL (36.4-46.3)
[2024-07-03 06:44] LABS: BUN Creatinine Ratio 19.2 (10-20); Calcium 8.8 mg/dl (8.6-10.3); Creatinine Clr Calc Pharmacy 73.3 ml/min; Magnesium 2.2 mg/dl (1.7-2.4); Phosphorus 3.5 mg/dl (2.5-4.9)
--- NOTE | 2024-07-03 12:08 | Electroencephalogram ---
EEG Procedure Note Date of Service July 02, 2024 Start / End Times Start Time: 1012 End Time: [address] Mack Suarez History A 63 year old female w possible seizure. EEG performed for evaluation of epileptiform activity. Home Medication List Medication Instructions Recorded Confirmed Type amlodipine 5 mg tablet 5 mg PO DAILY #30 tabs 12/05/22 07/01/24 Rx Inpatient Medication List Amlodipine Besylate (Amlodipine Besylate 5 Mg Tab) 5 mg PO DAILY [facility] Stop: 08/01/24 08:59 Last Admin: 07/03/24 08:34 Dose: 5 mg Documented By: Admin: 07/02/24 11:09 Dose: 5 mg Documented By: GUSTABO Aspirin (Aspirin 81 Mg Ectab) 81 mg PO [facility] Stop: 08/01/24 08:59 Last Admin: 07/03/24 08:34 Dose: 81 mg Documented By: Admin: 07/02/24 11:09 Dose: 81 mg Documented By: GUSTABO Atorvastatin Calcium (Atorvastatin 40 Mg Tab) 40 mg PO [facility] Stop: 08/01/24 08:59 Last Admin: 07/03/24 08:34 Dose: 40 mg Documented By: Admin: 07/02/24 11:09 Dose: 40 mg Documented By: GUSTABO Clopidogrel Bisulfate (Clopidogrel Bisulfate 75 Mg Tab) 75 mg PO [facility] Stop: 08/01/24 08:59 Last Admin: 07/03/24 08:34 Dose: 75 mg Documented By: Admin: 07/02/24 11:09 Dose: 75 mg Documented By: GUSTABO Enoxaparin Sodium (Enoxaparin Inj 40 Mg/0.4 Ml Syr) 40 mg SQ Q24H [facility] Stop: 07/31/24 20:59 Last Admin: 07/02/24 20:12 Dose: 40 mg Documented By: Admin: 07/01/24 20:12 Dose: 40 mg Documented By: TRM Discontinued Medications Clopidogrel Bisulfate (Clopidogrel Bisulfate 300 Mg Tab) 300 mg PO NOW STA Stop: 07/01/24 15:05 Last Admin: 07/01/24 15:11 Dose: 300 mg Documented By: WIL Gadobutrol (Gadobutrol 65ml Vial) 6.7 ml IV ONCE ONE Stop: 07/01/24 21:19 Last Admin: 07/01/24 21:19 Dose: 6.7 ml Documented By: MARINA Potassium Chloride/Sodium Chloride (Normal Saline W/20 Meq Kcl) 20 meq in 1,000 mls @ 60 mls/hr IV .[id number] ONE Stop: 07/02/24 14:39 Last Infusion: 07/02/24 03:28 Dose: Infused Documented By: Admin: 07/01/24 23:50 Dose: 60 mls/hr Documented By: DAVID Ioversol (Optiray 320 125ml) 119 ml IV ONCE ONE Stop: 07/01/24 14:21 Last Admin: 07/01/24 14:21 Dose: 119 ml Documented By: VIRGILIO Lorazepam (Lorazepam 0.5 Mg Tab) 0.5 mg PO NOW STA Stop: 07/01/24 20:13 Last Admin: 07/01/24 20:30 Dose: 0.5 mg Documented By: ANA Miscellaneous Information (Patient's Allergy Info Needs Entered) 1 each N/A ONE STA Stop: 07/01/24 18:20 Last Admin: 07/01/24 19:04 Dose: 1 each Documented By: JAMES Description This is a 21 electrode EEG with a single channel dedicated to limited EKG. The electrodes were placed in accordance with the International 10-20 system. REPORT: At the onset of the EEG, the patient is awake. The background activity consists of 9 Hz, persistent, posteriorly dominant, moderate amplitude, symmetric and rhythmic activity that is reactive to eye opening. Anteriorly, it consists of a mixture of low voltage indeterminate activity and 15-25Hz, persistent, low amplitude, symmetric and rhythmic activity. Stepwise intermittent photic stimulation (1-23 Hz) does not induce any abnormalities. Hyperventilation is not performed. Drowsiness is characterized by low amplitude mixed frequency activity, roving eye movements, and decreased eye blinking and muscle artifact. Interpretation IMPRESSION: This is a normal awake and drowsy routine EEG. There is no evidence of focal slowing or epileptiform activity.
--- NOTE | 2024-07-03 14:30 | Hospitalist Progress Note ---
Date of Service July 03, 2024 Assessment & Plan (1) Stroke-like symptoms: (2) Right-sided carotid artery disease: Plan Margarita Patricia is a overall healthy 63y/o F with PMHx significant only for HTN, HLD/not on meds presented to the ED 07/01 with stroke-like symptoms. She is being managed for the following: Stroke-Like Symptoms: KLAUDIA stenosis Hyperlipidemia Prediabetes Patient presented with numbness and tingling in her left arm and bilateral facial numbness. Admitting CT head, CTA head An MRI brain with no acute finding. Admitting CTA neck with hemodynamically significant stenosis of the R ICA with approximately 90% narrowing. C/w DAPT 07/01 and statin. Repeat A1c in 3 months, encourage lifestyle modifications - d/w patient 07/02. Avoid omeprazole while on plavix. Neurology evaluated 07/02 - okay for vascular indication, Zio patch monitoring on discharge, DAPT for 3 weeks, statin, eval for BETH and outpatient sleep study. PT/OT Vascular surgery on board, will follow recommendations. Reached out to vascular sx 07/03 for possible plan, they are yet to discuss with the patient. Syncope and collapse: Patient noted to be shaking by technical proposal writer after MRI procedure 07/01 , possible seizure for MRI take, episode lasted less than a minute, no tongue biting or incontinence symptoms noted. CPR initiated due to uncertainty regarding presence of pulse but patient promptly woke up. Patient was not confused waking up. discussed EEG read w/ neurology 07/03, no further recs. Orthostatic vitals. Seizure precautions. Utilize benzos emergently for any breakthrough clinical seizure. No driving per [place] state law following episode of loss of consciousness, form signed for penndot submission, pt has been made aware. Patient to follow-up with neurology upon discharge. Neurology evaluated 07/02, appreciate recommendation. HTN: continue home amlodipine. stable. DVT Prophylaxis: SQ Lovenox Code Status: FULL CODE PCP: Alec Baird MD Dispo: pending vascular sx eval. Admission and Anticipated Discharge Date Admission Date: July 01, 2024 Subjective Patient was seen and examined at bedside. Patient was lying in bed, on room air, NAD, resting comfortably. Patient reports improvement in her numbness and tingling sensation, denies any new symptoms. Patient reports eating okay and moving bowels okay. Physical Exam Physical Exam: GENERAL: Alert and oriented x3. NAD, on RA. HEENT: No pallor, no icterus. Pupils equal, round and reactive to light. Oral mucosa moist. NECK: No JVD, no neck masses. HEART: S1 and S2 heard. Regular rate and rhythm. No murmur, no gallop. RESPIRATORY SYSTEM: Normal AP diameter. No accessory muscle use. No wheezing, no crackles. ABDOMEN: Soft, bowel sounds present, nontender, no distention. CENTRAL NERVOUS SYSTEM: No facial droop. Speech is clear. Obeys simple commands. Moves extremities. EXTREMITIES: No edema, no erythema seen. Results & Data Results & Data Vital Signs (Past 12 Hours) Vital Signs Temp Pulse Resp BP Pulse Ox O2 Del Method 07/03/24 12:00 36.7 C 89 18 143/88 H 98 Room Air 07/03/24 08:00 36.7 C 82 20 114/61 96 Room Air 07/03/24 04:45 36.6 C 72 18 125/80 95 Room Air (2) Right-sided carotid artery disease Carotid artery disease type: unspecified Qualified Code(s): I77.9 - Disorder of arteries and arterioles, unspecified
--- NOTE | 2024-07-03 15:30 | Surgery Progress Note ---
Date of Service July 03, 2024 Assessment & Plan (1) Symptomatic stenosis of right carotid artery: Plan: Discussed CEA vs TCAR of her right carotid artery. She has chosen to go ahead with a TCAR of her Right ICA. I have discussed the risks options and benefits of the procedure with the patient. The patient understands the risks options and benefits and agrees to the procedure. This will be done on Sunday. She can be discharged on asa, plavix and st atin. We will arrange Plavix testing prior to her TCAR. Thank you very much for letting us participate in the care of this patient. Admission and Anticipated Discharge Date Admission Date: July 01, 2024 Subjective Patient with a symptomatic right internal carotid artery stenosis. She denies any residual weakness of her left upper extremity Physical Exam Constitutional: WD/WN, vitals as above Neurologic: CN's II-XI intact bilaterally and moves all extremities Psychiatric: A+Ox3, euthymic affect Results & Data Vital Signs (Past 12 Hours) Vital Signs Temp Pulse Resp BP Pulse Ox O2 Del Method 07/03/24 12:00 36.7 C 89 18 143/88 H 98 Room Air 07/03/24 08:00 36.7 C 82 20 114/61 96 Room Air 07/03/24 04:45 36.6 C 72 18 125/80 95 Room Air
--- NOTE | 2024-07-03 15:44 | Discharge Summary ---
Date of Service July 03, 2024 Admission HPI Per Admitting Provider Margarita Patricia is a overall healthy 63y/o F with PMHx significant only for HTN who presented to the ED with stroke-like symptoms. History obtained from patient and associated chart review. Patient's , Anoop, is present at bedside. Patient started with numbness and tingling in her left arm around 1:45PM while getting ready to clean her house. Patient's then drove her to the ED for further evaluation. In the ED, she developed some bilateral facial numbness from her jawline to her upper cheekbone region. CXR was negative. Head CT was negative. Head CTA was negative. Neck CTA did however show hemo dynamically significant stenosis of the right internal carotid artery with approximately 90% narrowing. She was loaded with 300mg po Plavix in the ED. Telestroke saw and evaluated the patient, recommended against using TNK. Patient's symptoms had completely resolved by the time I saw her in the ED. She denies ever experiencing any visual changes or lightheadedness/dizziness when the previously described symptoms occurred. Admission Exam Per Admitting Provider General: WD/WN, vitals as above, NAD, sitting up in bed, very pleasant, conversing appropriately. A+Ox3, euthymic affect. HEENT: Normocephalic, atraumatic. PERRL, conjunctivae normal, anicteric sclerae. External ear and nose normal, oropharynx normal. Respiratory: Normal respiratory effort, lungs clear to auscultation, no wheeze, rales, rhonchi. No accessory muscle use. Cardiovascular: Mildly tachycardic rate, regular rhythm, no murmur, normal peripheral pulses, no BLE edema. Vessels: No JVD. Abdomen/GI: Normal bowel sounds, soft, nontender, no hepatosplenomegaly. Extremities/Musculoskeletal: No cyanosis or clubbing, extremities motor strength 5/5, moves all extremities without issue. Neurologic: EOMI, NO focal deficits, CN's II-XI not formally tested but appear grossly intact bilaterally. Skin: No rashes, normal color, warm/dry. Principal Diagnosis Strokelike symptoms R ICA stenosis Hyperlipidemia Prediabetes Syncope and collapse Discharge Exam GENERAL: Alert and oriented x3. NAD, on RA. HEENT: No pallor, no icterus. Pupils equal, round and reactive to light. Oral mucosa moist. NECK: No JVD, no neck masses. HEART: S1 and S2 heard. Regular rate and rhythm. No murmur, no gallop. RESPIRATORY SYSTEM: Normal AP diameter. No accessory muscle use. No wheezing, no crackles. ABDOMEN: Soft, bowel sounds present, nontender, no distention. CENTRAL NERVOUS SYSTEM: No facial droop. Speech is clear. Obeys simple commands. Moves extremities. EXTREMITIES: No edema, no erythema seen. Discharge Data Allergies Allergy/AdvReac Type Severity Reaction Status Date / Time No Known Allergies Allergy Unverified 07/01/24 19:03 Consultations 07/01/24 15:13 ED Decision to Admit Stat 07/01/24 15:27 Consult Vascular Surgery Routine 07/01/24 17:51 Consult Neurology Routine Ordered Studies 07/01/24 14:10 CT angio head w con Stat CT angio neck with con Stat CT head/brain wo con Stat 07/01/24 15:27 MR brain wo/w con Routine Hospital Course (1) Stroke-like symptoms: (2) Right-sided carotid artery disease: Richie Patricia is a overall healthy 63y/o F with PMHx significant only for HTN, HLD/not on meds presented to the ED 07/01 with stroke-like symptoms. She was managed for the following: Stroke-Like Symptoms: KLAUDIA stenosis Hyperlipidemia Prediabetes Patient presented with numbness and tingling in her left arm and bilateral facial numbness. Admitting CT head, CTA head An MRI brain with no acute finding. Admitting CTA neck with hemodynamically significant stenosis of the R ICA with approximately 90% narrowing. C/w DAPT 07/01 and statin. Repeat A1c in 3 months, encourage lifestyle modifications - d/w patient 07/02. Avoid omeprazole while on plavix. Neurology evaluated 07/02 - okay for vascular indication, Zio patch monitoring on discharge, DAPT for 3 weeks, statin, eval for BETH and outpatient sleep study. PT/OT Vascular surgery on board, plan for TCAR of Right ICA. Ok for DC from their POV. Syncope and collapse: Patient noted to be shaking by mineral technologist after MRI procedure 07/01 , possible seizure for MRI take, episode lasted less than a minute, no tongue biting or incontinence symptoms noted. CPR initiated due to uncertainty regarding presence of pulse but patient promptly woke up. Patient was not confused waking up. discussed EEG read w/ neurology 07/03, no further recs. Orthostatic vitals. Seizure precautions. Utilize benzos emergently for any breakthrough clinical seizure. No driving per [place] state law following episode of loss of consciousness, form signed for penndot submission, pt has been made aware. Patient to follow-up with neurology upon discharge. Neurology evaluated 07/02, appreciate recommendation. HTN: continue home amlodipine. stable. DVT Prophylaxis: SQ Lovenox Code Status: FULL CODE PCP: Alec Baird MD Patient is being discharged to home with following instruction at the point of discharge: Follow-up with your primary care physician within a week time and likely you will need labs CBC/CMP/magnesium/phosphorus. You were evaluated for strokelike symptoms and symptomatic KLAUDIA stenosis. Neurology and vascular surgery evaluated you. You will be discharged on aspirin and Plavix for 21 days starting 07/01/2024. You are to stop Plavix after 21st day. Avoid omeprazole while on Plavix. You will need to continue aspirin thereafter. As discussed at the bedside, do not drive per [place] state law given you have sudden loss of consciousness. You will need to follow-up with neurology in 2 to 4 weeks time upon discharge and ongoing evaluation/further recommendation as to when you can drive. Follow-up with vascular surgery in a week time upon discharge, you will need intervention for your KLAUDIA stenosis. You will benefit from outpatient Zio patch monitoring and outpatient sleep study, coordinate with your PCP office to set up the test. Take your medications as prescribed. Please make sure that you are able to get your medications today by calling your pharmacy before you leave the hospital so that your treatment continuity is not broken. Home Health Attestation I certify that this patient is under my care and that I, or a physicians hearing aid assistant working with me, had a face to-face encounter that meets the home health [id number] encounter requirements with this patient. The encounter with the patient was in whole, or in part, for the following m edical condition, which is the primary reason for home health care (list medical condition): I certify that, based on my findings, the following services are medically nece ssary home health services: My clinical findings support the need for the above services because: Further, I certify that my clinical findings support that this patient is homebound (i.e. absences from home require considerable and taxing effort and are for medical reasons or taoism services or infrequently or of short duration when for other reasons) because: Certification for Home Health Services: Based on the above findings, I certify that this patient is confined to the home and needs intermittent retirement care, physical therapy and/or speech therapy or continues to need occupational therapy. The patient is under my care, and I have initiated the establishment of the plan of care. This patient will be followed by a physician who will periodically review the plan of care. Total Time Total Time Spent Total Time Spent (In Minutes): 45 Discharge Plan Discharge Items Patient Disposition: Home - Self-Care Reason For Visit: STROKE RULE-OUT Discharge Diagnosis: Strokelike symptoms R ICA stenosis Hyperlipidemia Prediabetes Syncope and collapse Activity: Resume your previous activity Non-emergency contact: Primary Care Provider Call non-emergency contact if: you have any medication questions, your symptoms worsen and your temperature is above 101 Follow-up/Referrals: Alec Baird MD [Primary Care Provider] - Diet: Carb Consistent or DM2 Addtl Attending Provider Instructions: Follow-up with your primary care physician within a week time and likely you will need labs CBC/CMP/magnesium/phosphorus. You were evaluated for strokelike symptoms and symptomatic KLAUDIA stenosis. Neurology and vascular surgery evaluated you. You will be discharged on aspirin and Plavix for 21 days starting 07/01/2024. You are to stop Plavix after 21st day. Avoid omeprazole while on Plavix. You will need to continue aspirin thereafter. As discussed at the bedside, do not drive per [facility] law given you have sudden loss of consciousness. You will need to follow-up with neurology in 2 to 4 weeks time upon discharge and ongoing evaluation/further recommendation as to when you can drive. Follow-up with vascular surgery in a week time upon discharge, you will need intervention for your KLAUDIA stenosis. You will benefit from outpatient Zio patch monitoring and outpatient sleep study, coordinate with your PCP office to set up the test. Take your medications as prescribed. Please make sure that you are able to get your medications today by calling your pharmacy before you leave the hospital so that your treatment continuity is not broken. Pending Studies at Discharge: No Stand-Alone Forms: My [facility], Smoking Cessation, Medications to Prevent Stroke Medications and DC Order Prescriptions: New clopidogrel 75 mg Tablet 75 mg PO QAM 18 Days Qty: 18 0RF atorvastatin 40 mg Tablet 40 mg PO QAM Qty: 30 0RF aspirin 81 mg Tablet,Delayed Release (Dr/Ec) 81 mg PO QAM Qty: 30 0RF Continued amlodipine 5 mg tablet 5 mg PO DAILY Qty: 30 0RF Rx Instructions: Take 1 tablet by mouth in the morning. Discharge Orders: Discharge Order (Routine); Ordered 07/03/24 Ordered By: Isis Arnold/Other Patient Handouts: Prediabetes, 5 Steps for Eating Healthier Admission Data Admit Date/Time: 07/01/24 15:27 Attending Provider: Isis Coleman Admit Provider: Pierre Harp Primary Care Provider: Alec Baird Other Providers: Pierre Harp; Teo Frankel; Alec George
[2024-07-03 15:53] VITALS: BP 106/71; RESP 16; TEMP 97.7; O2SAT 97
[2024-07-03 16:15] VITALS: PULSE 80
== END 2024-07-03 17:36 | disposition home or self-care (01) | DRG 68 ==
LOC: ED 13:59 → SUATTDRO 15:27 → 2W 15:27 → 2S 22:08